=== PATIENT | male | born 1965 | race Caucasian/White ===

== ENCOUNTER → 2020-09-29 12:12 | Outpatient (BNVA) | payer MEDICARE, MEDICAID, SELFPAY | PROVIDERS: PCP Internal Medicine; Referring Provider Internal Medicine; Visit Provider Internal Medicine | DX: Z13.89 Encounter for screening for other disorder (principal) | CPT/HCPCS: Q3014 ==

== ENCOUNTER 2020-12-02 14:32 | Outpatient (REF) | payer MEDICARE, MEDICAID, SELFPAY ==
[2020-12-02 16:38] LABS: Estimated Average Glucose 200 mg/dL; Hemoglobin A1c % 8.6 %
[2020-12-02 17:03] LABS: Alanine Aminotransferase 43 U/L (0-40); Albumin Level 4.3 g/dL (3.5-5.0); Alkaline Phosphatase 59 U/L (39-117); Anion Gap 14 (12-20); Aspartate Amino Transferase 19 U/L (5-37); Bilirubin Total 1.4 mg/dL (0.0-1.0); Blood Urea Nitrogen 22 mg/dL (9-16); Calcium 9.8 mg/dL (8.4-10.2); Carbon Dioxide 30 mmol/L (22-29); Chloride 98 mmol/L (96-108); Cholesterol 106 mg/dL; Estimated Glomerular Filt Rate > 60; Glucose Random 212 mg/dL (60-115); HDL Cholesterol 32 mg/dL; LDL Cholesterol Calculated 61 mg/dl; Potassium 4.6 mmol/L (3.3-5.1); Sodium 137 mmol/L (135-145); Total Protein 6.7 g/dL (6.5-8.0); Triglycerides 67 mg/dL
[2020-12-03 07:07] LABS: LDL Cholesterol Direct 59 mg/dL (<100)
== END 2020-12-02 14:33 | disposition home or self-care (01) ==
LOC: HO.HMGCLDS 14:32
PROVIDERS: PCP Internal Medicine; Visit Provider Internal Medicine
DX: E11.65 Type 2 diabetes mellitus with hyperglycemia (principal); Z79.4 Long term (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 of insulin
CPT/HCPCS: 36415; 80053; 80061; 83036; 83721

== ENCOUNTER 2020-12-05 11:54 | Outpatient (REF) | payer MEDICARE, MEDICAID, SELFPAY ==
[2020-12-05 14:40] LABS: Creatinine Urine 78.49 mg/dL; Microalbum/Creatinine Ratio Ur 73.8 ug/mg cr
== END 2020-12-05 11:55 | disposition home or self-care (01) ==
LOC: HO.HMGCLNP 11:54
PROVIDERS: Visit Provider Internal Medicine
DX: E11.65 Type 2 diabetes mellitus with hyperglycemia (principal); Z79.4 Long term (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 of insulin
CPT/HCPCS: 82043

== ENCOUNTER → 2020-12-29 11:57 | Outpatient (BNVA) | payer MEDICARE, MEDICAID, SELFPAY | PROVIDERS: PCP Internal Medicine; Visit Provider Internal Medicine | CPT/HCPCS: Q3014 ==

== ENCOUNTER → 2021-02-23 12:42 | Outpatient (BNVA) | payer MEDICARE, MEDICAID, SELFPAY | PROVIDERS: PCP Internal Medicine; Visit Provider Internal Medicine | CPT/HCPCS: Q3014 ==

== ENCOUNTER 2021-02-27 10:16 | Outpatient (REF) | payer MEDICARE, MEDICAID, SELFPAY ==
[2021-02-27 14:10] LABS: Estimated Average Glucose 212 mg/dL
[2021-02-27 14:32] LABS: Alanine Aminotransferase 39 U/L (0-40); Albumin Level 3.8 g/dL (3.5-5.0); Alkaline Phosphatase 49 U/L (39-117); Anion Gap 13 (12-20); Aspartate Amino Transferase 24 U/L (5-37); Blood Urea Nitrogen 22 mg/dL (9-16); Calcium 8.7 mg/dL (8.4-10.2); Carbon Dioxide 26 mmol/L (22-29); Chloride 105 mmol/L (96-108); Cholesterol 102 mg/dL; Estimated Glomerular Filt Rate > 60; Glucose Random 205 mg/dL (60-115); HDL Cholesterol 30 mg/dL; LDL Cholesterol Calculated 57 mg/dl; Potassium 4.4 mmol/L (3.3-5.1); Sodium 140 mmol/L (135-145); Total Protein 5.8 g/dL (6.5-8.0); Triglycerides 76 mg/dL
[2021-02-27 14:47] LABS: Creatinine Urine 174.19 mg/dL; Microalbum/Creatinine Ratio Ur 121.7 ug/mg cr
[2021-02-27 14:55] LABS: Vitamin D 25-OH Total 19.3 ng/mL (>30)
[2021-02-28 12:01] LABS: LDL Cholesterol Direct 58 mg/dL (<100)
== END 2021-02-27 10:17 | disposition home or self-care (01) ==
LOC: HO.10HDL 10:16
PROVIDERS: Visit Provider Internal Medicine
DX: E11.65 Type 2 diabetes mellitus with hyperglycemia (principal); E55.9 Vitamin D deficiency, unspecified; Z79.4 Long term (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 of insulin
CPT/HCPCS: 36415; 80053; 80061; 82043; 82306; 83036; 83721

== ENCOUNTER → 2021-04-20 14:44 | Outpatient (BNVA) | payer MEDICARE, MEDICAID, SELFPAY | PROVIDERS: PCP Internal Medicine; Visit Provider Internal Medicine | DX: E11.65 Type 2 diabetes mellitus with hyperglycemia (principal); E78.5 Hyperlipidemia, unspecified; I10 Essential (primary) hypertension; Z79.4 Long term (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 of insulin | CPT/HCPCS: 82947; 99212 ==

== ENCOUNTER 2021-08-25 15:10 | Outpatient (REF) | payer MEDICARE, MEDICAID, SELFPAY ==
[2021-08-25 17:09] LABS: Estimated Average Glucose 197 mg/dL; Hemoglobin A1c % 8.5 %
[2021-08-25 17:27] LABS: Creatinine Urine 157.97 mg/dL
[2021-08-25 17:29] LABS: Creatinine Urine 160.84 mg/dL
[2021-08-25 17:30] LABS: Alanine Aminotransferase 30 U/L (0-40); Alanine Aminotransferase 31 U/L (0-40); Albumin Level 4.2 g/dL (3.5-5.0); Alkaline Phosphatase 60 U/L (39-117); Anion Gap 12 (12-20); Aspartate Amino Transferase 18 U/L (5-37); Aspartate Amino Transferase 19 U/L (5-37); Bilirubin Total 1.2 mg/dL (0.0-1.0); Blood Urea Nitrogen 17 mg/dL (9-16); Calcium 10.1 mg/dL (8.4-10.2); Calcium 9.6 mg/dL (8.4-10.2); Carbon Dioxide 28 mmol/L (22-29); Carbon Dioxide 29 mmol/L (22-29); Chloride 100 mmol/L (96-108); Chloride 99 mmol/L (96-108); Estimated Glomerular Filt Rate > 60; Glucose Random 192 mg/dL (60-115); Glucose Random 193 mg/dL (60-115); Potassium 4.5 mmol/L (3.3-5.1); Sodium 135 mmol/L (135-145); Total Protein 6.7 g/dL (6.5-8.0)
[2021-08-26 11:06] LABS: LDL Cholesterol Direct 87 mg/dL (<100)
== END 2021-08-25 15:11 | disposition home or self-care (01) ==
LOC: HO.HMGCLDS 15:10
PROVIDERS: Internal Medicine; PCP Internal Medicine; Visit Provider Internal Medicine
DX: E66.01 Morbid (severe) obesity due to excess calories (principal); E78.9 Disorder of lipoprotein metabolism, unspecified; I10 Essential (primary) hypertension; R80.9 Proteinuria, unspecified; E11.65 Type 2 diabetes mellitus with hyperglycemia; Z79.4 Long term (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 of insulin
CPT/HCPCS: 36415; 80053; 82043; 83036; 83721

== ENCOUNTER 2021-12-26 14:46 | Outpatient (REF) | payer MEDICARE, MEDICAID, SELFPAY ==
[2021-12-26 16:45] LABS: MANUAL DIFF FLAG NO
[2021-12-26 16:49] LABS: Basophils Absolute Auto 0.1 X10*3/uL (0.0-0.2); Basophils Percent Auto 0.6 % (0-2); Eosinophils Absolute Auto 0.1 X10*3/uL (0.0-0.4); Hematocrit 54.1 % (42.0-52.0); Hemoglobin 18.4 g/dl (14.0-18.0); Imm Gran Abs Auto 0.03 X10*3/uL (0.00-0.03); Imm Gran Pct Auto 0.3 % (0.0-0.4); Lymphocytes Absolute Auto 2.4 X10*3/uL (1.2-4.9); Lymphocytes Percent Auto 24.4 % (20-40); Mean Corpuscular Hemoglobin 30.3 pg (27.0-33.0); Mean Corpuscular Volume 89.1 fL (80.0-98.0); Mean Platelet Volume 10.6 fL (9.4-12.4); Monocytes Absolute Auto 0.6 X10*3/uL (0.1-1.2); Monocytes Percent Auto 6.4 % (2-11); Neutrophils Absolute Auto 6.7 x10*3/uL (2.0-8.3); Neutrophils Percent Auto 67.3 % (45-73); Platelet Count 330 X10*3/uL (160-400); Red Blood Count 6.07 X10*6/uL (4.60-5.80); Red Cell Distribution Width 12.7 % (11.0-16.0); White Blood Count 9.9 X10*3/uL (4.8-10.8)
[2021-12-26 17:05] LABS: Alanine Aminotransferase 27 U/L (0-40); Albumin Level 4.1 g/dL (3.5-5.0); Alkaline Phosphatase 57 U/L (39-117); Anion Gap 13 (12-20); Aspartate Amino Transferase 15 U/L (5-37); Bilirubin Total 0.9 mg/dL (0.0-1.0); Blood Urea Nitrogen 24 mg/dL (9-16); Calcium 10.4 mg/dL (8.4-10.2); Carbon Dioxide 30 mmol/L (22-29); Chloride 99 mmol/L (96-108); Estimated Glomerular Filt Rate > 60; Glucose Random 205 mg/dL (60-115); Potassium 4.8 mmol/L (3.3-5.1); Sodium 137 mmol/L (135-145); Total Protein 6.5 g/dL (6.5-8.0)
[2021-12-26 18:14] LABS: Creatinine Urine 166.09 mg/dL; Microalbum/Creatinine Ratio Ur 62.6 ug/mg cr
[2021-12-27 03:56] LABS: Estimated Average Glucose 200 mg/dL; Hemoglobin A1c % 8.6 %
[2021-12-27 07:41] LABS: LDL Cholesterol Direct 68 mg/dL (<100)
== END 2021-12-26 14:47 | disposition home or self-care (01) ==
LOC: HO.HMGCLDS 14:46
PROVIDERS: PCP Internal Medicine; Visit Provider Internal Medicine
DX: E11.65 Type 2 diabetes mellitus with hyperglycemia (principal); I10 Essential (primary) hypertension; E78.9 Disorder of lipoprotein metabolism, unspecified; E66.01 Morbid (severe) obesity due to excess calories; R80.9 Proteinuria, unspecified
CPT/HCPCS: 36415; 80053; 82043; 83036; 83721; 85025

== ENCOUNTER → 2021-12-28 12:44 | Outpatient (BNVA) | payer MEDICARE, MEDICAID, SELFPAY | PROVIDERS: PCP Internal Medicine; Visit Provider Nurse Practitioner Gerontology | DX: E11.65 Type 2 diabetes mellitus with hyperglycemia (principal); E78.5 Hyperlipidemia, unspecified; E66.01 Morbid (severe) obesity due to excess calories; I10 Essential (primary) hypertension; Z79.4 Long term (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 of insulin; Z68.41 Body mass index [BMI] 40.0-44.9, adult | CPT/HCPCS: 82947; 99212 ==

== ENCOUNTER 2022-03-07 10:53 | Emergency (ER) | payer MEDICARE, MEDICAID, SELFPAY | END 2022-03-07 12:28 | disposition left against medical advice (07) | PROVIDERS: Emergency Provider Emergency Medicine; PCP Internal Medicine | DX: L50.0 Allergic urticaria (principal) ==

== ENCOUNTER 2022-03-16 10:46 | Outpatient (REF) | payer MEDICARE, MEDICAID, SELFPAY ==
[2022-03-16 14:07] LABS: Cholesterol 90 mg/dL; HDL Cholesterol 31 mg/dL; LDL Cholesterol Calculated 50 mg/dl; Triglycerides 46 mg/dL
[2022-03-16 14:20] LABS: Creatinine Urine 109.38 mg/dL; Microalbum/Creatinine Ratio Ur 35.6 ug/mg cr
[2022-03-17 06:11] LABS: LDL Cholesterol Direct 47 mg/dL (<100)
== END 2022-03-16 10:47 | disposition home or self-care (01) ==
LOC: HO.HMGCLDS 10:46
PROVIDERS: PCP Internal Medicine; Visit Provider Nurse Practitioner Gerontology
DX: E11.42 Type 2 diabetes mellitus with diabetic polyneuropathy (principal); E11.65 Type 2 diabetes mellitus with hyperglycemia; Z79.4 Long term (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 of insulin
CPT/HCPCS: 36415; 80061; 82043; 83721

== ENCOUNTER 2022-05-02 14:22 | Outpatient (REF) | payer MEDICARE, MEDICAID, SELFPAY ==
[2022-05-02 16:38] LABS: Alanine Aminotransferase 26 U/L (0-40); Albumin Level 4.3 g/dL (3.5-5.0); Alkaline Phosphatase 55 U/L (39-117); Anion Gap 12 (12-20); Aspartate Amino Transferase 17 U/L (5-37); Blood Urea Nitrogen 23 mg/dL (9-16); Calcium 9.7 mg/dL (8.4-10.2); Carbon Dioxide 29 mmol/L (22-29); Chloride 101 mmol/L (96-108); Estimated Glomerular Filt Rate > 60; Glucose Random 155 mg/dL (60-115); Potassium 4.4 mmol/L (3.3-5.1); Sodium 138 mmol/L (135-145); Total Protein 6.6 g/dL (6.5-8.0)
[2022-05-02 16:44] LABS: Estimated Average Glucose 160 mg/dL; Hemoglobin A1c % 7.2 %
== END 2022-05-02 14:23 | disposition home or self-care (01) ==
LOC: HO.HMGCLDS 14:22
PROVIDERS: PCP Internal Medicine; Visit Provider Internal Medicine
DX: E11.65 Type 2 diabetes mellitus with hyperglycemia (principal); I10 Essential (primary) hypertension; E78.9 Disorder of lipoprotein metabolism, unspecified; E66.01 Morbid (severe) obesity due to excess calories; R80.9 Proteinuria, unspecified
CPT/HCPCS: 36415; 80053; 83036

== ENCOUNTER 2022-05-03 12:13 | Outpatient (REF) | payer MEDICARE, MEDICAID, SELFPAY ==
[2022-05-03 15:00] LABS: Creatinine Urine 253.18 mg/dL; Microalbum/Creatinine Ratio Ur 67.5 ug/mg cr
== END 2022-05-03 12:14 | disposition home or self-care (01) ==
LOC: HO.HMGCLNP 12:13
PROVIDERS: Visit Provider Internal Medicine
DX: R80.9 Proteinuria, unspecified (principal)
CPT/HCPCS: 82043

== ENCOUNTER 2022-09-05 14:59 | Outpatient (REF) | payer MEDICARE, MEDICAID, SELFPAY ==
[2022-09-05 16:54] LABS: Estimated Average Glucose 169 mg/dL; Hemoglobin A1c % 7.5 %
[2022-09-05 16:55] LABS: Alanine Aminotransferase 31 U/L (0-40); Albumin Level 4.2 g/dL (3.5-5.0); Alkaline Phosphatase 55 U/L (39-117); Anion Gap 13 (12-20); Aspartate Amino Transferase 18 U/L (5-37); Bilirubin Total 0.9 mg/dL (0.0-1.0); Blood Urea Nitrogen 15 mg/dL (9-16); Calcium 9.9 mg/dL (8.4-10.2); Carbon Dioxide 30 mmol/L (22-29); Chloride 100 mmol/L (96-108); Estimated Glomerular Filt Rate > 60; Glucose Random 160 mg/dL (60-115); Potassium 4.5 mmol/L (3.3-5.1); Sodium 138 mmol/L (135-145); Total Protein 6.5 g/dL (6.5-8.0)
== END 2022-09-05 15:00 | disposition home or self-care (01) ==
LOC: HO.HMGCLDS 14:59
PROVIDERS: PCP Internal Medicine; Visit Provider Internal Medicine
DX: E55.9 Vitamin D deficiency, unspecified (principal); E66.01 Morbid (severe) obesity due to excess calories; E78.5 Hyperlipidemia, unspecified; E78.9 Disorder of lipoprotein metabolism, unspecified; I10 Essential (primary) hypertension; E11.65 Type 2 diabetes mellitus with hyperglycemia
CPT/HCPCS: 36415; 80053; 83036

== ENCOUNTER 2023-01-04 14:48 | Outpatient (REF) | payer MEDICARE, MEDICAID, SELFPAY ==
[2023-01-04 16:49] LABS: MANUAL DIFF FLAG NO
[2023-01-04 16:52] LABS: Basophils Absolute Auto 0.1 X10*3/uL (0.0-0.2); Basophils Percent Auto 0.6 % (0-2); Eosinophils Absolute Auto 0.1 X10*3/uL (0.0-0.4); Eosinophils Percent Auto 1.2 % (0-4); Hematocrit 50.6 % (42.0-52.0); Hemoglobin 17.8 g/dl (14.0-18.0); Imm Gran Abs Auto 0.02 X10*3/uL (0.00-0.03); Imm Gran Pct Auto 0.2 % (0.0-0.4); Lymphocytes Absolute Auto 2.2 X10*3/uL (1.2-4.9); Lymphocytes Percent Auto 23.9 % (20-40); Mean Corpuscular HGB Conc 35.2 g/dl (31.0-36.0); Mean Platelet Volume 10.4 fL (9.4-12.4); Monocytes Absolute Auto 0.6 X10*3/uL (0.1-1.2); Monocytes Percent Auto 6.6 % (2-11); Neutrophils Absolute Auto 6.2 x10*3/uL (2.0-8.3); Neutrophils Percent Auto 67.5 % (45-73); Platelet Count 301 X10*3/uL (160-400); Red Blood Count 5.75 X10*6/uL (4.60-5.80); Red Cell Distribution Width 12.9 % (11.0-16.0); White Blood Count 9.3 X10*3/uL (4.8-10.8)
[2023-01-04 17:29] LABS: Estimated Average Glucose 180 mg/dL; Hemoglobin A1c % 7.9 %
[2023-01-04 18:31] LABS: Alanine Aminotransferase 22 U/L (0-40); Albumin Level 3.9 g/dL (3.5-5.0); Alkaline Phosphatase 46 U/L (39-117); Anion Gap 14 (12-20); Aspartate Amino Transferase 14 U/L (5-37); Bilirubin Total 0.9 mg/dL (0.0-1.0); Blood Urea Nitrogen 22 mg/dL (9-16); Calcium 9.6 mg/dL (8.4-10.2); Carbon Dioxide 25 mmol/L (22-29); Chloride 104 mmol/L (96-108); Estimated Glomerular Filt Rate > 60; Glucose Random 176 mg/dL (60-115); Potassium 4.3 mmol/L (3.3-5.1); Sodium 139 mmol/L (135-145); Total Protein 5.9 g/dL (6.5-8.0)
[2023-01-04 18:48] LABS: TSH reflex Free T4 1.54 uIU/mL (0.32-4.0)
[2023-01-06 06:53] LABS: LDL Cholesterol Direct 98 mg/dL (<100)
== END 2023-01-04 14:49 | disposition home or self-care (01) ==
LOC: HO.HMGCLDS 14:48
PROVIDERS: PCP Internal Medicine; Visit Provider Internal Medicine
DX: Z00.01 Encounter for general adult medical examination with abnormal findings (principal); E11.9 Type 2 diabetes mellitus without complications; E66.01 Morbid (severe) obesity due to excess calories; E78.9 Disorder of lipoprotein metabolism, unspecified; I10 Essential (primary) hypertension; R80.9 Proteinuria, unspecified; E78.5 Hyperlipidemia, unspecified
CPT/HCPCS: 36415; 80053; 83036; 83721; 84443; 85025

== ENCOUNTER 2023-01-09 07:58 | Outpatient (REF) | payer MEDICARE, MEDICAID, SELFPAY ==
[2023-01-09 12:20] LABS: Creatinine Urine 105.56 mg/dL
== END 2023-01-09 07:59 | disposition home or self-care (01) ==
LOC: HO.HMGCLDS 07:58
PROVIDERS: PCP Internal Medicine; Visit Provider Internal Medicine
DX: R80.9 Proteinuria, unspecified (principal)
CPT/HCPCS: 82043

== ENCOUNTER 2023-04-05 13:12 | Outpatient (REF) | payer MEDICARE, MEDICAID, SELFPAY ==
[2023-04-05 15:14] LABS: Alanine Aminotransferase 15 U/L (0-40); Albumin Level 3.9 g/dL (3.5-5.0); Alkaline Phosphatase 56 U/L (39-117); Anion Gap 10 (12-20); Aspartate Amino Transferase 13 U/L (5-37); Blood Urea Nitrogen 18 mg/dL (9-16); Calcium 9.6 mg/dL (8.4-10.2); Carbon Dioxide 29 mmol/L (22-29); Chloride 103 mmol/L (96-108); Estimated Glomerular Filt Rate > 60; Glucose Random 168 mg/dL (60-115); Potassium 3.9 mmol/L (3.3-5.1); Sodium 138 mmol/L (135-145); Total Protein 6.6 g/dL (6.5-8.0)
[2023-04-05 17:38] LABS: Estimated Average Glucose 163 mg/dL; Hemoglobin A1c % 7.3 %
== END 2023-04-05 13:13 | disposition home or self-care (01) ==
LOC: HO.HMGCLDS 13:12
PROVIDERS: PCP Internal Medicine; Visit Provider Internal Medicine
DX: E11.9 Type 2 diabetes mellitus without complications (principal); E66.01 Morbid (severe) obesity due to excess calories; I10 Essential (primary) hypertension; R80.9 Proteinuria, unspecified; E78.9 Disorder of lipoprotein metabolism, unspecified
CPT/HCPCS: 36415; 80053; 83036

== ENCOUNTER 2023-06-24 09:06 | Outpatient (REF) | payer MEDICARE, MEDICAID, SELFPAY ==
[2023-06-24 12:08] LABS: Estimated Average Glucose 171 mg/dL; Hemoglobin A1c % 7.6 % (<6.0)
[2023-06-24 12:20] LABS: Alanine Aminotransferase 20 U/L (0-40); Albumin Level 3.7 g/dL (3.5-5.0); Alkaline Phosphatase 62 U/L (39-117); Anion Gap 12 (12-20); Aspartate Amino Transferase 16 U/L (5-37); Bilirubin Total 1.1 mg/dL (0.0-1.0); Blood Urea Nitrogen 16 mg/dL (9-16); Calcium 9.8 mg/dL (8.4-10.2); Carbon Dioxide 30 mmol/L (22-29); Chloride 102 mmol/L (96-108); Estimated Glomerular Filt Rate > 60; Glucose Random 191 mg/dL (60-115); Potassium 3.7 mmol/L (3.3-5.1); Sodium 140 mmol/L (135-145); Total Protein 6.2 g/dL (6.5-8.0)
== END 2023-06-24 09:07 | disposition home or self-care (01) ==
LOC: HO.HMGCLDS 09:06
PROVIDERS: PCP Internal Medicine; Visit Provider Internal Medicine
DX: E11.9 Type 2 diabetes mellitus without complications (principal); I10 Essential (primary) hypertension; E66.01 Morbid (severe) obesity due to excess calories; R80.9 Proteinuria, unspecified; E78.9 Disorder of lipoprotein metabolism, unspecified
CPT/HCPCS: 36415; 80053; 83036

== ENCOUNTER 2023-07-05 12:12 | Outpatient (AMB) | payer MEDICARE, MEDICAID, SELFPAY ==
[2023-07-05 12:26] VITALS: BP 144/82; PULSE 78; O2SAT 93; BMI 42.2
--- NOTE | 2023-07-05 12:26 | A.OFFPC_ITS ---
Vital Signs 07/05/23 12:26 Height 5 ft 6 in Weight 261 lb 8 oz BMI 42.2 BP 144/82 H Blood Pressure Location Rt brachial Position Sitting Pulse 78 Pulse Source Pulse Oximeter Pulse Oximetry (%) 93 Oxygen Delivery Method Room Air Intake Visit Reasons: 3 Month follow up Allergies No Known Allergies [No Known Allergies*] Allergy (Verified 07/05/23 12:26) Medication List - Last Reconciled 07/05/23 by Dutch Hardy MD atorvastatin 80 mg PO BEDTIME 90 days blood sugar diagnostic (Prodigy No Coding strips) As directed three times a day blood sugar diagnostic (Prodigy No Coding strips) As directed 4x/day blood-glucose meter (KlickEx Autocode Meter kit) As directed three times a day blood-glucose meter (KlickEx Autocode Blood Glucose Monitoring System) As directed cetirizine (Zyrtec) 10 mg PO DAILY 90 days clotrimazole-betamethasone 1-0.05 % 1 appl topical ONCE 30 days dulaglutide (Trulicity) 0.75 mg (0.5 mL) subcut QWEEK ezetimibe 10 mg PO DAILY 90 days hydrochlorothiazide 25 mg PO QAM 90 days lancets (ProdGenabilityy Twist Top Lancet) As directed three times a day lancets (Prodigy Lancets) As directed 4x/day lisinopril 10 mg PO DAILY 90 days metformin ER 1,000 mg (2 x 500 mg) PO BID 30 days Prodigy No Coding (blood sugar diagnostic) 4x daily NS Prodigy Pocket Meter (blood-glucose meter) 3 times a day NS Tobacco use date assessed: 07/05/23 Dental Screening Dental Screen Date: 07/05/23 Did you have a dental visit in the last 12 months?: No Did you have a dental problem in the last 6 months where you did not have access to dental care?: No Was dental information given to patient?: Patient declined HPI 3 Month follow up HPI Details Patient is a 57-year-old male came in today for his regular follow-up appointment Diabetes mellitus: Patient is doing well his hemoglobin A1c came back at 7.6%, labs were done this month reviewed with the patient He is currently taking Trulicity 0.7 mg along with metformin 1 g b.i.d. Lipid disorder: Continue atorvastatin 80 mg daily. And Zetia Hypertension: patient is on hydrochlorothiazide 25 mg and lisinopril 10 mg. No side effects, however is blood pressure is not well controlled I am increasing lisinopril 20 mg BMI continued to be in morbid obesity range patient has difficulty losing weight but is trying Contact dermatitis stable with Lotrisone cream as needed Allergies are stable patient is on Zyrtec daily Follow-up early October labs to be done before visit [facility] Medical History Obesity due to excess calories Vitamin D deficiency HLD (hyperlipidemia) HTN (hypertension) T2DM (type 2 diabetes mellitus) Diabetes type 2, uncontrolled Surgical History Hx of tooth extraction Hx of colonoscopy History of ankle surgery Family History Father No problems noted. Mother No problems noted. Social History Housing: Other Alcohol intake: former Patient Tobacco Use Status: Former Tobacco user (18 years ago ) e-Cigarette/Vaping Use: Never Used Current occupational status: disabled Cognitive needs: No Hearing needs: No Vision needs: Yes Questionnaire PHQ-9 Over the last 2 weeks, how often have you been bothered by any of the following problems? 1. Little interest or pleasure in doing things: nearly every day 2. Feeling down, depressed, or hopeless: nearly every day 3. Trouble falling or staying asleep, or sleeping too much: nearly every day 4. Feeling tired or having little energy: nearly every day 5. Poor appetite or overeating: more than half the days 6. Feeling bad about yourself - or that you are a failure or have let yourself or your family down: nearly every day 7. Trouble concentrating on things, such as reading the newspaper or watching television: nearly every day 8. Moving or speaking so slowly that other people could have noticed. Or the opposite - being so fidgety or restless that you have been moving around a lot more than usual: nearly every day 9. Thoughts that you would be better off or of hurting yourself in some way: not at all Total score: 23 Depression Screening Interpretation: Positive 29244 - PHQ-9 Billing: Yes Source: Developed by Drs. Slade Raphael, Romel Reddy and colleagues, with an educational ranjan from [employer]. Thrive Questionnaire Date Thrive assessed: 07/05/23 I am a: Patient What is your living situation today?: I have a steady place to live Within the past 12 months, did the food you bought not last and you didn't have the money to get more?: Often true Within the past 12 months, did you worry whether your food would run out before you got money to buy more?: Sometimes True Do you have trouble paying for medicines?: No Do you have trouble getting transportation to medical appointments?: No Do you have trouble paying your heating and electricity bill?: No Do you have trouble taking care of your child, family member or friend?: No Do you have trouble with day-to-day activities such as bathing, preparing meals, shopping, managing finances, etc.?: No Are you currently unemployed and looking for a job?: No Are you interested in more education?: No AUDIT C Alcohol Use Questionnaire (AUDIT-C) 1. How often do you have a drink containing alcohol?: Monthly or less 2. How many drinks containing alcohol do you have on a typical day when you are drinking?: 1 or 2 3. How often do you have six or more drinks on one occasion?: Never Total Score: 1 Score Reviewed/Action Taken: Yes ISIDRA-7 AMB Questionnaire ISIDRA-7 Date ISIRDA - 7 assessed: 07/05/23 Feeling nervous, anxious, or on edge: 3 = Nearly every day Not being able to stop or control worryin = Nearly every day Worrying too much about different things: 3 = Nearly every day Trouble relaxin = More than half the days Being so restless that it is hard to sit still: 3 = Nearly every day Becoming easily annoyed or irritable: 3 = Nearly every day Feeling afraid as if something awful might happen: 2 = More than half the days Total ISIDRA-7 score (0-4 normal; 5-9 mild; 10-14 moderate; 15-21 severe): 19 Source: Developed by Tete Omalley Kurt Kroenke and colleagues, with an educational ranjan from [employer]. ISIDRA-7 Assessment Billing ISIDRA-7 Assessment Tool: ISIDRA-7 Assessment 43370 Review of Systems Const Denies chills and Denies fever(s) ENT Denies epistaxis and Denies nasal discharge Card Denies chest pain Resp Denies chest congestion, Denies cough and Denies hemoptysis GI Denies diarrhea and Denies nausea Skin/Breast Denies rash Neuro Reports no additional complaints Psych Reports no additional complaints Endo Reports no additional complaints Physical exam (Primary Care) Vital Signs: Last Vital Signs Pulse 78 07/05/23 12:26 BP 144/82 H 07/05/23 12:26 Pulse Ox 93 07/05/23 12:26 Oxygen Delivery Method Room Air 07/05/23 12:26 BMI result Body Mass Index 42.2 Tobacco/Smoking Status: Tobacco use Status Tobacco use date assessed 07/05/23 07/05/23 12:28 Patient Tobacco Use Status Former Tobacco user (18 07/05/23 12:28 years ago ) e-Cigarette/Vaping Use Never Used 07/05/23 12:28 PHQ-9: PHQ-9 Score PHQ-9: Total score 07/05/23 13:17 Depression Screening Interpretation: Positive Thrive Assessment: Date of Thrive Assessment Date Thrive assessed 07/05/23 07/05/23 13:17 Const General: cooperative, comfortable and no acute distress Orientation/consciousness: patient oriented x3 HENMT Head: Yes normocephalic Eyes General: appearance normal, both eyes and all related structures Neck Neck: Yes supple Resp Effort & Inspection: normal respiratory effort, no cough and no stridor Cardio Rhythm: regular rhythm Heart sounds: S1 normal heart sound present and S2 normal heart sound present Skin General skin exam: turgor normal Neuro General: patient oriented x3, tone normal and moves all extremities Extrem Right lower extremity: no edema Left lower extremity: no edema Assessment and Plan Assessment & Plan (1) T2DM (type 2 diabetes mellitus): Code(s): E11.9 - Type 2 diabetes mellitus without complications Qualifiers: Diabetes mellitus complication status: with hyperglycemia Diabetes mellitus penitentiary insulin use: with penitentiary use Qualified Code(s): E11.65 - Type 2 diabetes mellitus with hyperglycemia; 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 (2) HTN (hypertension): Code(s): I10 - Essential (primary) hypertension Qualifiers: Hypertension type: unspecified Qualified Code(s): I10 - Essential (primary) hypertension (3) Morbid obesity due to excess calories: Code(s): E66.01 - Morbid (severe) obesity due to excess calories (4) Lipid disorder: Code(s): E78.9 - Disorder of lipoprotein metabolism, unspecified (5) Osteoarthritis of left hip: Code(s): M16.12 - Unilateral primary osteoarthritis, left hip Qualifiers: Osteoarthritis type: primary Qualified Code(s): M16.12 - Unilateral primary osteoarthritis, left hip (6) Contact dermatitis: Code(s): L25.9 - Unspecified contact dermatitis, unspecified cause Qualifiers: Contact dermatitis trigger: unspecified trigger Contact dermatitis type: allergic Qualified Code(s): L23.9 - Allergic contact dermatitis, unspecified cause (7) Microalbuminuria: Code(s): R80.9 - Proteinuria, unspecified Plan Patient is a 57-year-old male came in today for his regular follow-up appointment Diabetes mellitus: Patient is doing well his hemoglobin A1c came back at 7.6%, labs were done this month reviewed with the patient He is currently taking Trulicity 0.7 mg along with metformin 1 g b.i.d. Lipid disorder: Continue atorvastatin 80 mg daily. And Zetia Hypertension: patient is on hydrochlorothiazide 25 mg and lisinopril 10 mg. No side effects, however is blood pressure is not well controlled I am increasing lisinopril 20 mg BMI continued to be in morbid obesity range patient has difficulty losing weight but is trying Contact dermatitis stable with Lotrisone cream as needed Allergies are stable patient is on Zyrtec daily Patient has osteoarthritis keeps, knees, uses cane for ambulation Follow-up early October labs to be done before visit Orders: Orders Hemoglobin A1c Today E11.9 - Type 2 diabetes mellitus without complications, E66.01 - Morbid (severe) obesity due to excess calories, E78.9 - Disorder of lipoprotein metabolism, unspecified, I10 - Essential (primary) hypertension, L25.9 - Unspecified contact dermatitis, unspecified cause, M16.12 - Unilateral primary osteoarthritis, left hip Complete Blood Count Auto Diff Today E11.9 - Type 2 diabetes mellitus without complications, E66.01 - Morbid (severe) obesity due to excess calories, E78.9 - Disorder of lipoprotein metabolism, unspecified, I10 - Essential (primary) hypertension, L25.9 - Unspecified contact dermatitis, unspecified cause, M16.12 - Unilateral primary osteoarthritis, left hip Comprehensive Met. Panel Today E11.9 - Type 2 diabetes mellitus without complications, E66.01 - Morbid (severe) obesity due to excess calories, E78.9 - Disorder of lipoprotein metabolism, unspecified, I10 - Essential (primary) hypertension, L25.9 - Unspecified contact dermatitis, unspecified cause, M16.12 - Unilateral primary osteoarthritis, left hip LDL Cholesterol Direct Today E11.9 - Type 2 diabetes mellitus without complications, E66.01 - Morbid (severe) obesity due to excess calories, E78.9 - Disorder of lipoprotein metabolism, unspecified, I10 - Essential (primary) hypertension, L25.9 - Unspecified contact dermatitis, unspecified cause, M16.12 - Unilateral primary osteoarthritis, left hip Microalbumin, Random (w Creat) Today E11.9 - Type 2 diabetes mellitus without complications, E66.01 - Morbid (severe) obesity due to excess calories, E78.9 - Disorder of lipoprotein metabolism, unspecified, I10 - Essential (primary) hypertension, L25.9 - Unspecified contact dermatitis, unspecified cause, M16.12 - Unilateral primary osteoarthritis, left hip Medications: Changed From lisinopril 10 mg PO DAILY 90 days 90 tabs 1RF I10 - Essential (primary) hypertension To lisinopril 20 mg PO DAILY 90 tabs 1RF 90 days I10 - Essential (primary) hypertension Refilled clotrimazole-betamethasone 1-0.05 % 1 appl topical ONCE 45 grams 0RF 30 days ezetimibe 10 mg PO DAILY 90 tabs 1RF 90 days E78.9 - Disorder of lipoprotein metabolism, unspecified metformin ER 1,000 mg (2 x 500 mg) PO BID 120 tabs 11RF 30 days E11.65 - Type 2 diabetes mellitus with hyperglycemia, 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 atorvastatin 80 mg PO BEDTIME 90 tabs 1RF 90 days E78.9 - Disorder of lipoprotein metabolism, unspecified cetirizine (Zyrtec) 10 mg PO DAILY 90 tabs 1RF 90 days dulaglutide (Trulicity) 0.75 mg (0.5 mL) subcut QWEEK 2 mL 4RF E11.65 - Type 2 diabetes mellitus with hyperglycemia hydrochlorothiazide 25 mg PO QAM 90 tabs 1RF 90 days I10 - Essential (primary) hypertension Coding Level of Care Code Est Pt Level 4 (28344) Diagnoses Type 2 diabetes mellitus with hyperglycemia, with long-term current use of insulin E11.65; Z79.4 Diabetes mellitus complication status: with hyperglycemia Diabetes mellitus environmental services director insulin use: with penitentiary use Hypertension, unspecified type I10 Hypertension type: unspecified Morbid obesity due to excess calories E66.01 Lipid disorder E78.9 Primary osteoarthritis of left hip M16.12 Osteoarthritis type: primary Allergic contact dermatitis, unspecified trigger L23.9 Contact dermatitis trigger: unspecified trigger Contact dermatitis type: allergic Microalbuminuria R80.9 Additional Codes ISIDRA-7 Assessment Billing - ISIDRA-7 Assessment Tool: ISIDRA-7 Assessment 35014 ([id number])
== END 2023-07-05 16:01 | disposition home or self-care (01) ==
PROVIDERS: PCP Internal Medicine; Visit Provider Internal Medicine
DX: E11.65 Type 2 diabetes mellitus with hyperglycemia (principal); Z79.4 Long term (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 of insulin; E66.01 Morbid (severe) obesity due to excess calories; Z68.41 Body mass index [BMI] 40.0-44.9, adult; I10 Essential (primary) hypertension; E78.9 Disorder of lipoprotein metabolism, unspecified; M16.12 Unilateral primary osteoarthritis, left hip; L23.9 Allergic contact dermatitis, unspecified cause; R80.9 Proteinuria, unspecified
CPT/HCPCS: 99214

== ENCOUNTER 2023-10-11 12:10 | Outpatient (REF) | payer MEDICARE, MEDICAID, SELFPAY ==
[2023-10-11 13:29] LABS: MANUAL DIFF FLAG NO
[2023-10-11 13:47] LABS: Basophils Absolute Auto 0.1 X10*3/uL (0.0-0.2); Basophils Percent Auto 0.5 % (0-2); Eosinophils Absolute Auto 0.2 X10*3/uL (0.0-0.4); Eosinophils Percent Auto 2.4 % (0-4); Imm Gran Abs Auto 0.04 X10*3/uL (0.00-0.03); Imm Gran Pct Auto 0.4 % (0.0-0.4); Lymphocytes Absolute Auto 2.5 X10*3/uL (1.2-4.9); Mean Corpuscular HGB Conc 34.7 g/dl (31.0-36.0); Mean Corpuscular Volume 89.4 fL (80.0-98.0); Mean Platelet Volume 9.9 fL (9.4-12.4); Monocytes Absolute Auto 0.7 X10*3/uL (0.1-1.2); Monocytes Percent Auto 6.9 % (2-11); Neutrophils Absolute Auto 6.4 x10*3/uL (2.0-8.3); Neutrophils Percent Auto 64.8 % (45-73); Platelet Count 306 X10*3/uL (160-400); Red Blood Count 6.48 X10*6/uL (4.60-5.80); Red Cell Distribution Width 13.1 % (11.0-16.0); White Blood Count 9.9 X10*3/uL (4.8-10.8)
[2023-10-11 13:48] LABS: Hematocrit 57.9 % (42.0-52.0); Hemoglobin 20.1 g/dl (14.0-18.0)
[2023-10-11 13:53] LABS: Estimated Average Glucose 186 mg/dL; Hemoglobin A1c % 8.1 % (<6.0)
[2023-10-11 13:54] LABS: Alanine Aminotransferase 25 U/L (0-40); Albumin Level 4.2 g/dL (3.5-5.0); Alkaline Phosphatase 66 U/L (39-117); Anion Gap 12 (12-20); Aspartate Amino Transferase 15 U/L (5-37); Blood Urea Nitrogen 27 mg/dL (9-16); Carbon Dioxide 31 mmol/L (22-29); Chloride 99 mmol/L (96-108); Estimated Glomerular Filt Rate > 60; Glucose Random 204 mg/dL (60-115); Potassium 4.4 mmol/L (3.3-5.1); Sodium 138 mmol/L (135-145)
[2023-10-11 14:18] LABS: Creatinine Urine 171.48 mg/dL
[2023-10-11 15:03] LABS: Microalbum/Creatinine Ratio Ur 616.3 ug/mg cr (<30)
[2023-10-12 07:23] LABS: LDL Cholesterol Direct 126 mg/dL (<100)
== END 2023-10-11 12:11 | disposition home or self-care (01) ==
LOC: HO.HMGCLDS 12:10
PROVIDERS: PCP Internal Medicine; Visit Provider Internal Medicine
DX: E11.9 Type 2 diabetes mellitus without complications (principal); I10 Essential (primary) hypertension; E66.01 Morbid (severe) obesity due to excess calories; E78.9 Disorder of lipoprotein metabolism, unspecified; M16.12 Unilateral primary osteoarthritis, left hip; L25.9 Unspecified contact dermatitis, unspecified cause
CPT/HCPCS: 36415; 80053; 82043; 82570; 83036; 83721; 85025

== ENCOUNTER 2023-10-18 12:10 | Outpatient (AMB) | payer MEDICARE, MEDICAID, SELFPAY ==
[2023-10-18 12:13] VITALS: BP 124/70; PULSE 87; O2SAT 94; BMI 41.9
--- NOTE | 2023-10-18 12:13 | MHC.PC.OV ---
Vital Signs 10/18/23 12:13 Height 5 ft 6 in Weight 259 lb 8 oz BMI 41.9 BP 124/70 Blood Pressure Location Lt brachial Position Sitting Pulse 87 Pulse Source Pulse Oximeter Pulse Oximetry (%) 94 Oxygen Delivery Method Room Air Intake Visit Reasons: follow up Allergies No Known Allergies [No Known Allergies*] Allergy (Verified 10/18/23 12:16) Medication List - Last Reconciled 10/18/23 by Dutch Hardy MD atorvastatin 80 mg PO BEDTIME 90 days blood sugar diagnostic (Prodigy No Coding strips) As directed three times a day blood sugar diagnostic (Prodigy No Coding strips) As directed 4x/day blood-glucose meter ([employer] Autocode Meter kit) As directed three times a day blood-glucose meter ([employer] Autocode Blood Glucose Monitoring System) As directed clotrimazole-betamethasone 1-0.05 % 1 appl topical ONCE 30 days dulaglutide (Trulicity) 0.75 mg (0.5 mL) subcut QWEEK ezetimibe 10 mg PO DAILY 90 days hydrochlorothiazide 25 mg PO QAM 90 days lancets (Prodigy Twist Top Lancet) As directed three times a day lancets (Prodigy Lancets) As directed 4x/day lisinopril 20 mg PO DAILY 90 days metformin ER 1,000 mg (2 x 500 mg) PO BID 30 days Prodigy No Coding (blood sugar diagnostic) 4x daily NS Prodigy Pocket Meter (blood-glucose meter) 3 times a day NS Tobacco use date assessed: 10/18/23 Dental Screening Dental Screen Date: 10/18/23 Did you have a dental visit in the last 12 months?: No Did you have a dental problem in the last 6 months where you did not have access to dental care?: No Was dental information given to patient?: No HPI follow up HPI Details Patient is a 58-year-old male came in today for his regular follow-up appointment Diabetes mellitus: Patient is doing well his hemoglobin A1c came back at 8.1%, patient says that it is because of holidays, he also have a microalbuminuria and is due for repeat check He is currently taking Trulicity 0.7 mg along with metformin 1 g b.i.d. Lipid disorder: Continue atorvastatin 80 mg daily. And Zetia Hypertension: patient is on hydrochlorothiazide 25 mg and lisinopril 20 mg, blood pressure is well controlled now, he is tolerating medication no side effects BMI continued to be in morbid obesity range patient has difficulty losing weight but is trying Contact dermatitis stable with Lotrisone cream as needed Allergies are stable patient is on Zyrtec daily Patient has osteoarthritis keeps, knees, uses cane for ambulation off and on He is requesting a referral to urology for erectile dysfunction Follow-up in December [facility] Medical History Obesity due to excess calories Vitamin D deficiency HLD (hyperlipidemia) HTN (hypertension) T2DM (type 2 diabetes mellitus) Diabetes type 2, uncontrolled Surgical History Hx of tooth extraction Hx of colonoscopy History of ankle surgery Family History Father No problems noted. Mother No problems noted. Social History Housing: Other Alcohol intake: former Patient Tobacco Use Status: Former Tobacco user (18 years ago ) e-Cigarette/Vaping Use: Never Used Current occupational status: disabled Cognitive needs: No Hearing needs: No Vision needs: Yes Questionnaire Thrive Questionnaire Date Thrive assessed: 07/05/23 AUDIT C Alcohol Use Questionnaire (AUDIT-C) 1. How often do you have a drink containing alcohol?: Monthly or less 2. How many drinks containing alcohol do you have on a typical day when you are drinking?: 1 or 2 3. How often do you have six or more drinks on one occasion?: Never Total Score: 1 Score Reviewed/Action Taken: Yes ISIDRA-7 AMB Questionnaire ISIDRA-7 Date ISIDRA - 7 assessed: 07/05/23 Source: Developed by Drs. Slade Raphael, Tete Nelson, Romel Duarte and colleagues, with an educational ranjan from [employer]. Review of Systems Const Denies chills and Denies fever(s) ENT Denies epistaxis and Denies nasal discharge Card Denies chest pain Resp Denies chest congestion, Denies cough and Denies hemoptysis GI Denies diarrhea and Denies nausea Skin/Breast Denies rash Neuro Reports no additional complaints Psych Reports no additional complaints Endo Reports no additional complaints Physical exam (Primary Care) Vital Signs: Last Vital Signs Pulse 87 10/18/23 12:13 BP 124/70 10/18/23 12:13 Pulse Ox 94 10/18/23 12:13 Oxygen Delivery Method Room Air 10/18/23 12:13 BMI result Body Mass Index 41.9 Tobacco/Smoking Status: Tobacco use Status Tobacco use date assessed 10/18/23 10/18/23 12:16 Patient Tobacco Use Status Former Tobacco user (18 10/18/23 12:16 years ago ) e-Cigarette/Vaping Use Never Used 10/18/23 12:16 Thrive Assessment: Date of Thrive Assessment Date Thrive assessed 07/05/23 10/18/23 12:16 Const General: cooperative, comfortable and no acute distress Orientation/consciousness: patient oriented x3 HENMT Head: Yes normocephalic Eyes General: appearance normal, both eyes and all related structures Neck Neck: Yes supple Resp Effort & Inspection: normal respiratory effort, no cough and no stridor Cardio Rhythm: regular rhythm Heart sounds: S1 normal heart sound present and S2 normal heart sound present Skin General skin exam: turgor normal Neuro General: patient oriented x3, tone normal and moves all extremities Extrem Right lower extremity: no edema Left lower extremity: no edema Assessment and Plan Assessment & Plan (1) Diabetes mellitus type 2 in obese: Code(s): E11.69 - Type 2 diabetes mellitus with other specified complication; E66.9 - Obesity, unspecified (2) Erectile dysfunction: Code(s): N52.9 - Male erectile dysfunction, unspecified Qualifiers: Erectile dysfunction type: due to other cause Qualified Code(s): N52.8 - Other male erectile dysfunction (3) HTN (hypertension): Code(s): I10 - Essential (primary) hypertension Qualifiers: Hypertension type: unspecified Qualified Code(s): I10 - Essential (primary) hypertension (4) Microalbuminuria: Code(s): R80.9 - Proteinuria, unspecified (5) Morbid obesity due to excess calories: Code(s): E66.01 - Morbid (severe) obesity due to excess calories (6) Lipid disorder: Code(s): E78.9 - Disorder of lipoprotein metabolism, unspecified (7) Obesity due to excess calories: Code(s): E66.09 - Other obesity due to excess calories Qualifiers: Body mass index: BMI 40.0-44.9 Obesity classification: adult class 3 (BMI >= 40) Serious obesity comorbidity presence: with serious comorbidity Qualified Code(s): E66.01 - Morbid (severe) obesity due to excess calories; Z68.41 - Body mass index [BMI] 40.0-44.9, adult (8) Osteoarthritis of left hip: Code(s): M16.12 - Unilateral primary osteoarthritis, left hip Qualifiers: Osteoarthritis type: primary Qualified Code(s): M16.12 - Unilateral primary osteoarthritis, left hip (9) Contact dermatitis: Code(s): L25.9 - Unspecified contact dermatitis, unspecified cause Qualifiers: Contact dermatitis trigger: unspecified trigger Contact dermatitis type: allergic Qualified Code(s): L23.9 - Allergic contact dermatitis, unspecified cause Plan Patient is a 58-year-old male came in today for his regular follow-up appointment Diabetes mellitus: Patient is doing well his hemoglobin A1c came back at 8.1%, patient says that it is because of holidays, he also have a microalbuminuria and is due for repeat check He is currently taking Trulicity 0.7 mg along with metformin 1 g b.i.d. Lipid disorder: Continue atorvastatin 80 mg daily. And Zetia Hypertension: patient is on hydrochlorothiazide 25 mg and lisinopril 20 mg, blood pressure is well controlled now, he is tolerating medication no side effects BMI continued to be in morbid obesity range patient has difficulty losing weight but is trying Contact dermatitis stable with Lotrisone cream as needed Allergies are stable patient is on Zyrtec daily Patient has osteoarthritis keeps, knees, uses cane for ambulation off and on He is requesting a referral to urology for erectile dysfunction Follow-up in December Orders: Orders Complete Blood Count Auto Diff Today E11.69 - Type 2 diabetes mellitus with other specified complication, E66.01 - Morbid (severe) obesity due to excess calories, E66.09 - Other obesity due to excess calories, E66.9 - Obesity, unspecified, E78.9 - Disorder of lipoprotein metabolism, unspecified, I10 - Essential (primary) hypertension, L25.9 - Unspecified contact dermatitis, unspecified cause, M16.12 - Unilateral primary osteoarthritis, left hip, N52.9 - Male erectile dysfunction, unspecified, R80.9 - Proteinuria, unspecified Comprehensive Met. Panel Today E11.69 - Type 2 diabetes mellitus with other specified complication, E66.01 - Morbid (severe) obesity due to excess calories, E66.09 - Other obesity due to excess calories, E66.9 - Obesity, unspecified, E78.9 - Disorder of lipoprotein metabolism, unspecified, I10 - Essential (primary) hypertension, L25.9 - Unspecified contact dermatitis, unspecified cause, M16.12 - Unilateral primary osteoarthritis, left hip, N52.9 - Male erectile dysfunction, unspecified, R80.9 - Proteinuria, unspecified LDL Cholesterol Direct Today E11.69 - Type 2 diabetes mellitus with other specified complication, E66.01 - Morbid (severe) obesity due to excess calories, E66.09 - Other obesity due to excess calories, E66.9 - Obesity, unspecified, E78.9 - Disorder of lipoprotein metabolism, unspecified, I10 - Essential (primary) hypertension, L25.9 - Unspecified contact dermatitis, unspecified cause, M16.12 - Unilateral primary osteoarthritis, left hip, N52.9 - Male erectile dysfunction, unspecified, R80.9 - Proteinuria, unspecified Microalbumin, Random (w Creat) Today E11.69 - Type 2 diabetes mellitus with other specified complication, E66.01 - Morbid (severe) obesity due to excess calories, E66.09 - Other obesity due to excess calories, E66.9 - Obesity, unspecified, E78.9 - Disorder of lipoprotein metabolism, unspecified, I10 - Essential (primary) hypertension, L25.9 - Unspecified contact dermatitis, unspecified cause, M16.12 - Unilateral primary osteoarthritis, left hip, N52.9 - Male erectile dysfunction, unspecified, R80.9 - Proteinuria, unspecified Hemoglobin A1c Today E11.69 - Type 2 diabetes mellitus with other specified complication, E66.01 - Morbid (severe) obesity due to excess calories, E66.09 - Other obesity due to excess calories, E66.9 - Obesity, unspecified, E78.9 - Disorder of lipoprotein metabolism, unspecified, I10 - Essential (primary) hypertension, L25.9 - Unspecified contact dermatitis, unspecified cause, M16.12 - Unilateral primary osteoarthritis, left hip, N52.9 - Male erectile dysfunction, unspecified, R80.9 - Proteinuria, unspecified Referrals Urology Referral N52.9 - Male erectile dysfunction, unspecified Medications: Refilled dulaglutide (Trulicity) 0.75 mg (0.5 mL) subcut QWEEK 2 mL 4RF E11.65 - Type 2 diabetes mellitus with hyperglycemia Coding Level of Care Code Est Pt Level 4 (87483) Diagnoses Diabetes mellitus type 2 in obese E11.69; E66.9 Other male erectile dysfunction N52.8 Erectile dysfunction type: due to other cause Hypertension, unspecified type I10 Hypertension type: unspecified Microalbuminuria R80.9 Morbid obesity due to excess calories E66.01 Lipid disorder E78.9 Class 3 severe obesity due to excess calories with serious comorbidity and body mass index (BMI) of 40.0 to 44.9 in adult E66.01; Z68.41 Body mass index: BMI 40.0-44.9 Obesity classification: adult class 3 (BMI >= 40) Serious obesity comorbidity presence: with serious comorbidity Primary osteoarthritis of left hip M16.12 Osteoarthritis type: primary Allergic contact dermatitis, unspecified trigger L23.9 Contact dermatitis trigger: unspecified trigger Contact dermatitis type: allergic
== END 2023-10-18 12:54 | disposition home or self-care (01) ==
PROVIDERS: PCP Internal Medicine; Visit Provider Internal Medicine
DX: E11.69 Type 2 diabetes mellitus with other specified complication (principal); E66.01 Morbid (severe) obesity due to excess calories; Z68.41 Body mass index [BMI] 40.0-44.9, adult; E66.9 Obesity, unspecified; I10 Essential (primary) hypertension; N52.8 Other male erectile dysfunction; R80.9 Proteinuria, unspecified; E78.9 Disorder of lipoprotein metabolism, unspecified; M16.12 Unilateral primary osteoarthritis, left hip; L23.9 Allergic contact dermatitis, unspecified cause
CPT/HCPCS: 99214

== ENCOUNTER 2023-12-19 10:12 | Outpatient (REF) | payer MEDICARE, MEDICAID, SELFPAY ==
[2023-12-19 13:07] LABS: MANUAL DIFF FLAG NO
[2023-12-19 13:20] LABS: Basophils Absolute Auto 0.1 X10*3/uL (0.0-0.2); Basophils Percent Auto 0.8 % (0-2); Eosinophils Absolute Auto 0.2 X10*3/uL (0.0-0.4); Eosinophils Percent Auto 2.6 % (0-4); Hematocrit 54.2 % (42.0-52.0); Imm Gran Abs Auto 0.03 X10*3/uL (0.00-0.03); Imm Gran Pct Auto 0.4 % (0.0-0.4); Lymphocytes Percent Auto 23.6 % (20-40); Mean Corpuscular HGB Conc 35.1 g/dl (31.0-36.0); Mean Corpuscular Hemoglobin 30.8 pg (27.0-33.0); Mean Platelet Volume 10.4 fL (9.4-12.4); Monocytes Absolute Auto 0.5 X10*3/uL (0.1-1.2); Monocytes Percent Auto 6.4 % (2-11); Neutrophils Absolute Auto 5.5 x10*3/uL (2.0-8.3); Neutrophils Percent Auto 66.2 % (45-73); Platelet Count 298 X10*3/uL (160-400); Red Blood Count 6.16 X10*6/uL (4.60-5.80); Red Cell Distribution Width 13.2 % (11.0-16.0); White Blood Count 8.3 X10*3/uL (4.8-10.8)
[2023-12-19 13:29] LABS: Estimated Average Glucose 177 mg/dL; Hemoglobin A1c % 7.8 % (<6.0)
[2023-12-19 14:04] LABS: Alanine Aminotransferase 17 U/L (0-40); Albumin Level 3.8 g/dL (3.5-5.0); Alkaline Phosphatase 55 U/L (39-117); Anion Gap 13 (12-20); Aspartate Amino Transferase 14 U/L (5-37); Bilirubin Total 0.8 mg/dL (0.0-1.0); Blood Urea Nitrogen 19 mg/dL (9-16); Calcium 9.1 mg/dL (8.4-10.2); Carbon Dioxide 29 mmol/L (22-29); Chloride 102 mmol/L (96-108); Estimated Glomerular Filt Rate > 60; Glucose Random 173 mg/dL (60-115); Potassium 3.8 mmol/L (3.3-5.1); Sodium 140 mmol/L (135-145); Total Protein 6.3 g/dL (6.5-8.0)
[2023-12-19 14:17] LABS: Creatinine Urine 164.44 mg/dL; Microalbum/Creatinine Ratio Ur 1216.2 ug/mg cr (<30); Microalbumin Urine > 2000.0 mg/L
[2023-12-20 23:04] LABS: LDL Cholesterol Direct 183 mg/dL (<100)
== END 2023-12-19 10:13 | disposition home or self-care (01) ==
LOC: HO.HMGCLDS 10:12
PROVIDERS: PCP Internal Medicine; Visit Provider Internal Medicine
DX: E66.01 Morbid (severe) obesity due to excess calories (principal); E11.69 Type 2 diabetes mellitus with other specified complication; E78.9 Disorder of lipoprotein metabolism, unspecified; I10 Essential (primary) hypertension; R80.9 Proteinuria, unspecified; M16.12 Unilateral primary osteoarthritis, left hip; L25.9 Unspecified contact dermatitis, unspecified cause; N52.9 Male erectile dysfunction, unspecified
CPT/HCPCS: 36415; 80053; 82043; 82570; 83036; 83721; 85025

== ENCOUNTER 2024-01-10 13:46 | Outpatient (AMB) | payer MEDICARE, MEDICAID, SELFPAY ==
[2024-01-10 13:48] VITALS: BP 168/92; PULSE 89; O2SAT 98; BMI 43.2
--- NOTE | 2024-01-10 13:48 | A.OFFPC_ITS ---
Vital Signs 01/10/24 13:48 01/10/24 14:15 Height 5 ft 6 in Weight 267 lb 8 oz BMI 43.2 BP 168/92 H 158/90 H Blood Pressure Location Rt brachial Lt brachial Position Sitting Sitting Pulse 89 Pulse Source Pulse Oximeter Pulse Oximetry (%) 98 Oxygen Delivery Method Room Air Intake Visit Reasons: Annual PE Allergies No Known Allergies [No Known Allergies*] Allergy (Verified 01/10/24 13:48) Medication List - Last Reconciled 01/10/24 by Dutch Hardy MD atorvastatin 80 mg PO BEDTIME 90 days blood sugar diagnostic (Prodigy No Coding strips) As directed three times a day blood sugar diagnostic (Prodigy No Coding strips) As directed 4x/day blood-glucose meter ([employer] Autocode Meter kit) As directed three times a day blood-glucose meter ([employer] Aut[employer] Blood Glucose Monitoring System) As d irected clotrimazole-betamethasone 1-0.05 % 1 appl topical ONCE 30 days dulaglutide (Trulicity) 0.75 mg (0.5 mL) subcut QWEEK ezetimibe 10 mg PO DAILY 90 days hydrochlorothiazide 25 mg PO QAM 90 days lancets ([facility] Twist Top Lancet) As directed three times a day lancets (Prodigy Lancets) As directed 4x/day lisinopril 20 mg PO DAILY 90 days metformin ER 1,000 mg (2 x 500 mg) PO BID 30 days Prodigy No Coding (blood sugar diagnostic) 4x daily NS Prodigy Pocket Meter (blood-glucose meter) 3 times a day NS Tobacco use date assessed: 01/10/24 Dental Screening Dental Screen Date: 01/10/24 Did you have a dental visit in the last 12 months?: No Did you have a dental problem in the last 6 months where you did not have access to dental care?: No Was dental information given to patient?: No HPI Annual PE HPI Details Physical exam Declined colonoscopy Labs done recently reviewed Blood pressure is 168/92, patient says that is upset about something We rechecked after 15 minutes and it was, it has improved but still elevated at 158 systolic Patient instructed to start monitoring his blood pressure at home and give me a call in a week Medication list reviewed Patient is morbidly obese need to lose weight A1c came back at 7.8 patient is on insulin patient is on metformin 1000 units b.i.d. and Trulicity 0.75 mg once awake I am increasing the dose to 1.5 mg LDL is still very high patient was not taking his atorvastatin 80 mg regularly is taking it regularly now [facility] Medical History Obesity due to excess calories Vitamin D deficiency HLD (hyperlipidemia) HTN (hypertension) T2DM (type 2 diabetes mellitus) Diabetes type 2, uncontrolled Surgical History Hx of tooth extraction Hx of colonoscopy History of ankle surgery Family History Father No problems noted. Mother No problems noted. Social History Housing: Other Alcohol intake: former Patient Tobacco Use Status: Former Tobacco user (18 years ago ) e-Cigarette/Vaping Use: Never Used service: No Current occupational status: disabled Cognitive needs: No Hearing needs: No Vision needs: Yes Questionnaire Thrive Questionnaire Date Thrive assessed: 07/05/23 AUDIT C Alcohol Use Questionnaire (AUDIT-C) 1. How often do you have a drink containing alcohol?: Monthly or less 2. How many drinks containing alcohol do you have on a typical day when you are drinking?: 1 or 2 3. How often do you have six or more drinks on one occasion?: Never Total Score: 1 Score Reviewed/Action Taken: Yes ISIDRA-7 AMB Questionnaire ISIDRA-7 Date ISIDRA - 7 assessed: 07/05/23 Source: Developed by Drs. Slade Raphael, Tete Nelson, Romel Duarte and colleagues, with an educational ranjan from [employer]. Review of Systems Const Denies chills, Denies fever(s) and Denies headache(s) Eyes Denies blurry vision ENT Denies headache(s), Denies nasal discharge, Denies nasal obstruction, Denies odynophagia and Denies sinus pain Card Denies chest pain at rest and Denies chest pain with activity Resp Denies cough and Denies hemoptysis GI Denies diarrhea, Denies odynophagia, Denies vomiting and Denies hematemesis Reports as per HPI Skin/Breast Reports as per HPI Neuro Denies Neuro-related abnormal movements, Denies Abnormal speech present and Denies headache(s) Psych Denies mood swings and Denies paranoia Endo Reports as per HPI Ezequiel/Lymph Reports as per HPI Aller/Immun Reports as per HPI Physical exam (Primary Care) Vital Signs: Last Vital Signs Pulse 89 01/10/24 13:48 BP 158/90 H 01/10/24 14:15 Pulse Ox 98 01/10/24 13:48 Oxygen Delivery Method Room Air 01/10/24 13:48 BMI result Body Mass Index 43.2 Tobacco/Smoking Status: Tobacco use Status Tobacco use date assessed 01/10/24 01/10/24 13:50 Patient Tobacco Use Status Former Tobacco user (18 01/10/24 13:50 years ago ) e-Cigarette/Vaping Use Never Used 01/10/24 13:50 Thrive Assessment: Date of Thrive Assessment Date Thrive assessed 07/05/23 01/10/24 13:50 Const General: cooperative, comfortable and no acute distress Orientation/consciousness: patient oriented x3 HENMT Head: Yes normocephalic and Yes atraumatic Eyes General: appearance normal, both eyes and all related structures Pupils: Equal, round and reactive pupils present EOM: EOMs intact bilaterally Neck Neck: Yes supple and No lymphadenopathy Thyroid: Thyroid normal Lymphatic: no lymphadenopathy noted Resp Effort & Inspection: normal respiratory effort and able to speak in complete sentences Auscultation: clear to auscultation bilaterally Cardio Heart sounds: S1 normal heart sound present and S2 normal heart sound present GI Palpation (GI): Soft to palpation and nontender Auscultation: normal bowel sounds General: Yes no CVA tenderness Back/Spine/Pelvis Back: no CVA tenderness Skin General skin exam: elasticity normal and turgor normal Neuro General: patient oriented x3 Cranial nerves: Yes Equal, round and reactive pupils present Speech: No Abnormal speech present Coordination: Romberg test negative Extrem General: Yes normal exam except as noted and No edema Assessment and Plan Assessment & Plan (1) Encounter for general adult medical examination with abnormal findings: Code(s): Z00.01 - Encounter for general adult medical examination with abnormal findings (2) T2DM (type 2 diabetes mellitus): Code(s): E11.9 - Type 2 diabetes mellitus without complications Qualifiers: Diabetes mellitus complication status: with hyperglycemia Diabetes mellitus assisted insulin use: with buttermaker continuous churn use Qualified Code(s): E11.65 - Type 2 diabetes mellitus with hyperglycemia; Z79.4 - care home (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 of insulin (3) HTN (hypertension): Code(s): I10 - Essential (primary) hypertension Qualifiers: Hypertension type: unspecified Qualified Code(s): I10 - Essential (primary) hypertension (4) Lipid disorder: Code(s): E78.9 - Disorder of lipoprotein metabolism, unspecified (5) Morbid obesity due to excess calories: Code(s): E66.01 - Morbid (severe) obesity due to excess calories (6) Vitamin D deficiency: Code(s): E55.9 - Vitamin D deficiency, unspecified (7) Microalbuminuria: Code(s): R80.9 - Proteinuria, unspecified (8) Erectile dysfunction: Code(s): N52.9 - Male erectile dysfunction, unspecified Qualifiers: Erectile dysfunction type: due to other cause Qualified Code(s): N52.8 - Other male erectile dysfunction (9) Osteoarthritis of left hip: Code(s): M16.12 - Unilateral primary osteoarthritis, left hip Qualifiers: Osteoarthritis type: primary Qualified Code(s): M16.12 - Unilateral primary osteoarthritis, left hip (10) Abnormal tandem walk: Code(s): R26.9 - Unspecified abnormalities of gait and mobility Plan Physical exam Declined colonoscopy Labs done recently reviewed Blood pressure is 168/92, patient says that is upset about something We rechecked after 15 minutes and it was, it has improved but still elevated at 158 systolic Patient instructed to start monitoring his blood pressure at home and give me a call in a week Medication list reviewed Patient is morbidly obese need to lose weight A1c came back at 7.8 patient is on insulin patient is on metformin 1000 units b.i.d. and Trulicity 0.75 mg once awake I am increasing the dose to 1.5 mg LDL is still very high patient was not taking his atorvastatin 80 mg regularly is taking it regularly now Patient is not able to perform tandem walk because of severe osteoarthritis in his knees hips Orders: Orders Hemoglobin A1c Today E11.9 - Type 2 diabetes mellitus without complications, E55.9 - Vitamin D deficiency, unspecified, E66.01 - Morbid (severe) obesity due to excess calories, E78.9 - Disorder of lipoprotein metabolism, unspecified, I10 - Essential (primary) hypertension, R80.9 - Proteinuria, unspecified, Z00.01 - Encounter for general adult medical examination with abnormal findings Complete Blood Count Auto Diff Today E11.9 - Type 2 diabetes mellitus without complications, E55.9 - Vitamin D deficiency, unspecified, E66.01 - Morbid (severe) obesity due to excess calories, E78.9 - Disorder of lipoprotein metabolism, unspecified, I10 - Essential (primary) hypertension, R80.9 - Proteinuria, unspecified, Z00.01 - Encounter for general adult medical examination with abnormal findings Comprehensive [place]. Panel Fast Today E11.9 - Type 2 diabetes mellitus without complications, E55.9 - Vitamin D deficiency, unspecified, E66.01 - Morbid (severe) obesity due to excess calories, E78.9 - Disorder of lipoprotein metabolism, unspecified, I10 - Essential (primary) hypertension, R80.9 - Proteinuria, unspecified, Z00.01 - Encounter for general adult medical examination with abnormal findings Lipid Panel Today E11.9 - Type 2 diabetes mellitus without complications, E55.9 - Vitamin D deficiency, unspecified, E66.01 - Morbid (severe) obesity due to excess calories, E78.9 - Disorder of lipoprotein metabolism, unspecified, I10 - Essential (primary) hypertension, R80.9 - Proteinuria, unspecified, Z00.01 - Encounter for general adult medical examination with abnormal findings Microalbumin, Random (w Creat) Today E11.9 - Type 2 diabetes mellitus without complications, E55.9 - Vitamin D deficiency, unspecified, E66.01 - Morbid (severe) obesity due to excess calories, E78.9 - Disorder of lipoprotein metabolism, unspecified, I10 - Essential (primary) hypertension, R80.9 - Proteinuria, unspecified, Z00.01 - Encounter for general adult medical examination with abnormal findings Medications: Changed From dulaglutide (Trulicity) 0.75 mg (0.5 mL) subcut QWEEK 2 mL 4RF E11.65 - Type 2 diabetes mellitus with hyperglycemia To dulaglutide (Trulicity) 1.5 mg subcut QWEEK 13 mL 1RF 90 days E11.65 - Type 2 diabetes mellitus with hyperglycemia Coding Level of Care Code Est Pt [facility] Care [id number]([id number]) Diagnoses Encounter for general adult medical examination with abnormal findings Z00.01 Type 2 diabetes mellitus with hyperglycemia, with long-term current use of insulin E11.65; Z79.4 Diabetes mellitus complication status: with hyperglycemia Diabetes mellitus assisted insulin use: with assisted use Hypertension, unspecified type I10 Hypertension type: unspecified Lipid disorder E78.9 Morbid obesity due to excess calories E66.01 Vitamin D deficiency E55.9 Microalbuminuria R80.9 Other male erectile dysfunction N52.8 Erectile dysfunction type: due to other cause Primary osteoarthritis of left hip M16.12 Osteoarthritis type: primary Abnormal tandem walk R26.9
[2024-01-10 14:15] VITALS: BP 158/90
== END 2024-01-10 14:17 | disposition home or self-care (01) ==
PROVIDERS: Visit Provider Internal Medicine
DX: Z00.01 Encounter for general adult medical examination with abnormal findings (principal); E11.65 Type 2 diabetes mellitus with hyperglycemia; E66.01 Morbid (severe) obesity due to excess calories; Z79.4 Long term (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 of insulin; Z68.41 Body mass index [BMI] 40.0-44.9, adult; I10 Essential (primary) hypertension; E78.9 Disorder of lipoprotein metabolism, unspecified; E55.9 Vitamin D deficiency, unspecified; R80.9 Proteinuria, unspecified; N52.8 Other male erectile dysfunction; M16.12 Unilateral primary osteoarthritis, left hip; R26.9 Unspecified abnormalities of gait and mobility
CPT/HCPCS: 99396

== ENCOUNTER 2024-04-03 12:59 | Outpatient (REF) | payer MEDICARE, MEDICAID, SELFPAY ==
[2024-04-03 16:32] LABS: MANUAL DIFF FLAG NO
[2024-04-03 16:45] LABS: Basophils Absolute Auto 0.1 X10*3/uL (0.0-0.2); Basophils Percent Auto 1.2 % (0-2); Eosinophils Absolute Auto 0.2 X10*3/uL (0.0-0.4); Eosinophils Percent Auto 2.3 % (0-4); Hemoglobin 17.7 g/dl (14.0-18.0); Imm Gran Abs Auto 0.03 X10*3/uL (0.00-0.03); Imm Gran Pct Auto 0.4 % (0.0-0.4); Lymphocytes Absolute Auto 2.3 X10*3/uL (1.2-4.9); Lymphocytes Percent Auto 27.6 % (20-40); Mean Corpuscular HGB Conc 34.7 g/dl (31.0-36.0); Mean Corpuscular Hemoglobin 31.3 pg (27.0-33.0); Mean Corpuscular Volume 90.1 fL (80.0-98.0); Monocytes Absolute Auto 0.5 X10*3/uL (0.1-1.2); Monocytes Percent Auto 6.4 % (2-11); Neutrophils Absolute Auto 5.1 x10*3/uL (2.0-8.3); Neutrophils Percent Auto 62.1 % (45-73); Platelet Count 285 X10*3/uL (160-400); Red Blood Count 5.66 X10*6/uL (4.60-5.80); Red Cell Distribution Width 13.2 % (11.0-16.0); White Blood Count 8.1 X10*3/uL (4.8-10.8)
[2024-04-03 16:47] LABS: Alanine Aminotransferase 25 U/L (0-40); Alkaline Phosphatase 51 U/L (39-117); Anion Gap 12 (12-20); Aspartate Amino Transferase 20 U/L (5-37); Bilirubin Total 1.1 mg/dL (0.0-1.0); Blood Urea Nitrogen 15 mg/dL (9-16); Calcium 9.4 mg/dL (8.4-10.2); Carbon Dioxide 28 mmol/L (22-29); Chloride 105 mmol/L (96-108); Cholesterol 166 mg/dL (<200); Estimated Glomerular Filt Rate > 60; Glucose Fasting 137 mg/dL (60-99); HDL Cholesterol 41 mg/dL (>40); LDL Cholesterol Calculated 100 mg/dL (<100); Potassium 3.9 mmol/L (3.3-5.1); Sodium 141 mmol/L (135-145); Total Protein 6.3 g/dL (6.5-8.0); Triglycerides 127 mg/dL (<150)
[2024-04-03 16:55] LABS: Estimated Average Glucose 177 mg/dL; Hemoglobin A1c % 7.8 % (<6.0)
== END 2024-04-03 13:00 | disposition home or self-care (01) ==
LOC: HO.HMGCLDS 12:59
PROVIDERS: PCP Internal Medicine; Visit Provider Internal Medicine
DX: Z00.01 Encounter for general adult medical examination with abnormal findings (principal); E11.9 Type 2 diabetes mellitus without complications; I10 Essential (primary) hypertension; E78.9 Disorder of lipoprotein metabolism, unspecified; E66.01 Morbid (severe) obesity due to excess calories; E55.9 Vitamin D deficiency, unspecified; R80.9 Proteinuria, unspecified
CPT/HCPCS: 36415; 80053; 80061; 83036; 85025

== ENCOUNTER 2024-04-07 13:57 | Outpatient (REF) | payer MEDICARE, MEDICAID, SELFPAY ==
[2024-04-07 17:37] LABS: Creatinine Urine 224.56 mg/dL; Microalbum/Creatinine Ratio Ur 718.7 ug/mg cr (<30)
== END 2024-04-07 13:58 | disposition home or self-care (01) ==
LOC: HO.HMGCLNP 13:57
PROVIDERS: PCP Internal Medicine; Visit Provider Internal Medicine
DX: Z00.01 Encounter for general adult medical examination with abnormal findings (principal); E11.9 Type 2 diabetes mellitus without complications; I10 Essential (primary) hypertension; E78.9 Disorder of lipoprotein metabolism, unspecified; E66.01 Morbid (severe) obesity due to excess calories; E55.9 Vitamin D deficiency, unspecified; R80.9 Proteinuria, unspecified
CPT/HCPCS: 82043; 82570

== ENCOUNTER 2024-04-07 14:00 | Outpatient (AMB) | payer MEDICARE, MEDICAID, SELFPAY ==
[2024-04-07 14:02] VITALS: BP 142/78; PULSE 83; O2SAT 95; BMI 41.4
--- NOTE | 2024-04-07 14:02 | A.OFFPC_ITS ---
Vital Signs 04/07/24 14:02 Height 5 ft 6 in Weight 256 lb 6 oz BMI 41.4 BP 142/78 H Blood Pressure Location Lt brachial Position Sitting Pulse 83 Pulse Source Pulse Oximeter Pulse Oximetry (%) 95 Oxygen Delivery Method Room Air Intake Visit Reasons: 3 month follow up Allergies No Known Allergies [No Known Allergies*] Allergy (Verified 04/07/24 14:03) Medication List - Last Reconciled 04/07/24 by Dutch Hardy MD atorvastatin 80 mg PO BEDTIME 90 days blood sugar diagnostic (Prodigy No Coding strips) As directed three times a day blood sugar diagnostic (Prodigy No Coding strips) As directed 4x/day blood-glucose meter ([employer] Autocode Meter kit) As directed three times a day blood-glucose meter ([employer] Autocode Blood Glucose Monitoring System) As directed clotrimazole-betamethasone 1-0.05 % 1 appl topical ONCE 30 days dulaglutide 1.5 mg (0.5 mL) subcut QWEEK 90 days ezetimibe 10 mg PO DAILY 90 days hydrochlorothiazide 25 mg PO QAM 90 days lancets ([employer] Twist Top Lancet) As directed three times a day lancets (Prodigy Lancets) As directed 4x/day lisinopril 20 mg PO DAILY metformin ER 1,000 mg (2 x 500 mg) PO BID 30 days Prodigy No Coding (blood sugar diagnostic) 4x daily NS Prodigy Pocket Meter (blood-glucose meter) 3 times a day NS Tobacco use date assessed: 04/07/24 Dental Screening Dental Screen Date: 04/07/24 Did you have a dental visit in the last 12 months?: No Did you have a dental problem in the last 6 months where you did not have access to dental care?: No Was dental information given to patient?: No HPI 3 month follow up HPI Details Patient is a 58-year-old male came in today for his regular follow-up appointment Complaining ringing in left ear off and on, on examination there is no infection Diabetes mellitus: Patient is doing well his hemoglobin A1c came back at 7.8%, he also have a microalbuminuria He is currently taking Trulicity 0.7 mg along with metformin 1 g b.i.d. Lipid disorder: Continue atorvastatin 80 mg daily. And Zetia Hypertension: patient is on hydrochlorothiazide 25 mg and lisinopril 20 mg, still elevated I am increasing his lisinopril to 30 mg BMI continued to be in morbid obesity range patient has difficulty losing weight but is trying Contact dermatitis stable with Lotrisone cream as needed Allergies are stable patient is on Zyrtec daily Patient has osteoarthritis keeps, knees, uses cane for ambulation off and on Follow-up early July HPI Comments History of Present Illness Details This is a longitudinal relationship between me and the patient. Ongoing care provided, patient was provided time to ask questions [facility] Medical History Obesity due to excess calories Vitamin D deficiency HLD (hyperlipidemia) HTN (hypertension) T2DM (type 2 diabetes mellitus) Diabetes type 2, uncontrolled Surgical History Hx of tooth extraction Hx of colonoscopy History of ankle surgery Family History Father No problems noted. Mother No problems noted. Social History Housing: Other Alcohol intake: former Patient Tobacco Use Status: Former Tobacco user (18 years ago ) e-Cigarette/Vaping Use: Never Used service: No Current occupational status: disabled Cognitive needs: No Hearing needs: No Vision needs: Yes Questionnaire PHQ-9 Over the last 2 weeks, how often have you been bothered by any of the following problems? 1. Little interest or pleasure in doing things: not at all 2. Feeling down, depressed, or hopeless: more than half the days 3. Trouble falling or staying asleep, or sleeping too much: not at all 4. Feeling tired or having little energy: not at all 5. Poor appetite or overeating: not at all 6. Feeling bad about yourself - or that you are a failure or have let yourself or your family down: not at all 7. Trouble concentrating on things, such as reading the newspaper or watching television: more than half the days 8. Moving or speaking so slowly that other people could have noticed. Or the opp osite - being so fidgety or restless that you have been moving around a lot more than usual: not at all 9. Thoughts that you would be better off or of hurting yourself in some way: more than half the days Total score: 6 Depression Screening Interpretation: Negative Depression Screening Done: Yes 22473 - PHQ-9 Billing: Yes Source: Developed by Drs. Slade Raphael, Tete Nelson, Romel Duarte and colleagues, with an educational ranjan from [employer]. Thrive Questionnaire Date Thrive assessed: 07/05/23 ISIDRA-7 AMB Questionnaire ISIDRA-7 Date ISIDRA - 7 assessed: 07/05/23 Source: Developed by Drs. Slade Raphael, Tete Nelson, Romel Duarte and colleagues, with an educational ranjan from [employer]. Review of Systems Const Denies chills and Denies fever(s) ENT Denies epistaxis and Denies nasal discharge Card Denies chest pain Resp Denies chest congestion, Denies cough and Denies hemoptysis GI Denies diarrhea and Denies nausea Skin/Breast Denies rash Neuro Reports no additional complaints Psych Reports no additional complaints Endo Reports no additional complaints Physical exam (Primary Care) Vital Signs: Last Vital Signs Pulse 83 04/07/24 14:02 BP 142/78 H 04/07/24 14:02 Pulse Ox 95 04/07/24 14:02 Oxygen Delivery Method Room Air 04/07/24 14:02 BMI result Body Mass Index 41.4 Tobacco/Smoking Status: Tobacco use Status Tobacco use date assessed 04/07/24 04/07/24 14:05 Patient Tobacco Use Status Former Tobacco user (18 04/07/24 14:05 years ago ) e-Cigarette/Vaping Use Never Used 04/07/24 14:05 Depression Screening Interpretation: Negative Thrive Assessment: Date of Thrive Assessment Date Thrive assessed 07/05/23 04/07/24 14:05 Const General: cooperative, comfortable and no acute distress Orientation/consciousness: patient oriented x3 HENMT Head: Yes normocephalic Eyes General: appearance normal, both eyes and all related structures Neck Neck: Yes supple Resp Effort & Inspection: normal respiratory effort, no cough and no stridor Cardio Rhythm: regular rhythm Heart sounds: S1 normal heart sound present and S2 normal heart sound present Skin General skin exam: turgor normal Neuro General: patient oriented x3, tone normal and moves all extremities Assessment and Plan Assessment & Plan (1) T2DM (type 2 diabetes mellitus): Code(s): E11.9 - Type 2 diabetes mellitus without complications Qualifiers: Diabetes mellitus complication status: with hyperglycemia 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 Qualified Code(s): E11.65 - Type 2 diabetes mellitus with hyperglycemia; Z79.4 - terminal superintendent (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 of 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 (2) HTN (hypertension): Code(s): I10 - Essential (primary) hypertension Qualifiers: Hypertension type: unspecified Qualified Code(s): I10 - Essential (primary) hypertension (3) Lipid disorder: Code(s): E78.9 - Disorder of lipoprotein metabolism, unspecified (4) Morbid obesity due to excess calories: Code(s): E66.01 - Morbid (severe) obesity due to excess calories (5) Vitamin D deficiency: Code(s): E55.9 - Vitamin D deficiency, unspecified (6) Microalbuminuria: Code(s): R80.9 - Proteinuria, unspecified (7) Osteoarthritis of left hip: Code(s): M16.12 - Unilateral primary osteoarthritis, left hip Qualifiers: Osteoarthritis type: primary Qualified Code(s): M16.12 - Unilateral primary osteoarthritis, left hip Plan Patient is a 58-year-old male came in today for his regular follow-up appointment Complaining ringing in left ear off and on, on examination there is no infection Diabetes mellitus: Patient is doing well his hemoglobin A1c came back at 7.8%, he also have a microalbuminuria He is currently taking Trulicity 0.7 mg along with metformin 1 g b.i.d. Lipid disorder: Continue atorvastatin 80 mg daily. And Zetia Hypertension: patient is on hydrochlorothiazide 25 mg and lisinopril 20 mg, still elevated I am increasing his lisinopril to 30 mg BMI continued to be in morbid obesity range patient has difficulty losing weight but is trying Contact dermatitis stable with Lotrisone cream as needed Allergies are stable patient is on Zyrtec daily Patient has osteoarthritis keeps, knees, uses cane for ambulation off and on Follow-up early July Orders: Orders Hemoglobin A1c 3 Months E11.65 - Type 2 diabetes mellitus with hyperglycemia, E78.9 - Disorder of lipoprotein metabolism, unspecified, I10 - Essential (prim dante) hypertension, Z79.4 - terminal superintendent (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 of insulin Complete Blood Count Auto Diff 3 Months E11.65 - Type 2 diabetes mellitus with hyperglycemia, E78.9 - Disorder of lipoprotein metabolism, unspecified, I10 - Essential (primary) hypertension, Z79.4 - correction (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 of insulin Comprehensive Met. Panel 3 Months E11.65 - Type 2 diabetes mellitus with hyperglycemia, E78.9 - Disorder of lipoprotein metabolism, unspecified, I10 - Essential (primary) hypertension, Z79.4 - correction (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 of insulin Medications: Changed From lisinopril 20 mg PO DAILY I10 - Essential (primary) hypertension To lisinopril 30 mg PO DAILY 90 tabs 0RF 90 days I10 - Essential (primary) hypertension Coding Level of Care Code Est Pt Level 4 (58355) Complex EM visit Add On G2211 Diagnoses Type 2 diabetes mellitus with hyperglycemia, with long-term current use of insulin E11.65; Z79.4 Diabetes mellitus complication status: with hyperglycemia 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
== END 2024-04-07 14:25 | disposition home or self-care (01) ==
PROVIDERS: PCP Internal Medicine; Visit Provider Internal Medicine
DX: E11.65 Type 2 diabetes mellitus with hyperglycemia (principal); Z79.4 Long term (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 of insulin; E66.01 Morbid (severe) obesity due to excess calories; Z68.41 Body mass index [BMI] 40.0-44.9, adult; I10 Essential (primary) hypertension; E78.9 Disorder of lipoprotein metabolism, unspecified; E55.9 Vitamin D deficiency, unspecified; R80.9 Proteinuria, unspecified; M16.12 Unilateral primary osteoarthritis, left hip
CPT/HCPCS: 99214; G2211

== ENCOUNTER 2024-07-15 11:34 | Outpatient (REF) | payer MEDICARE, MEDICAID, SELFPAY ==
[2024-07-15 13:43] LABS: MANUAL DIFF FLAG NO
[2024-07-15 13:59] LABS: Basophils Absolute Auto 0.1 X10*3/uL (0.0-0.2); Basophils Percent Auto 1.1 % (0-2); Eosinophils Absolute Auto 0.4 X10*3/uL (0.0-0.4); Eosinophils Percent Auto 4.3 % (0-4); Hematocrit 51.5 % (42.0-52.0); Hemoglobin 17.8 g/dl (14.0-18.0); Imm Gran Abs Auto 0.03 X10*3/uL (0.00-0.03); Imm Gran Pct Auto 0.4 % (0.0-0.4); Lymphocytes Absolute Auto 1.9 X10*3/uL (1.2-4.9); Lymphocytes Percent Auto 22.9 % (20-40); Mean Corpuscular HGB Conc 34.6 g/dl (31.0-36.0); Mean Corpuscular Hemoglobin 30.8 pg (27.0-33.0); Mean Corpuscular Volume 89.1 fL (80.0-98.0); Monocytes Absolute Auto 0.5 X10*3/uL (0.1-1.2); Neutrophils Absolute Auto 5.5 x10*3/uL (2.0-8.3); Neutrophils Percent Auto 65.3 % (45-73); Platelet Count 276 X10*3/uL (160-400); Red Blood Count 5.78 X10*6/uL (4.60-5.80); Red Cell Distribution Width 12.8 % (11.0-16.0); White Blood Count 8.5 X10*3/uL (4.8-10.8)
[2024-07-15 14:23] LABS: Alanine Aminotransferase 26 U/L (0-40); Albumin Level 3.9 g/dL (3.5-5.0); Alkaline Phosphatase 54 U/L (39-117); Anion Gap 12 (12-20); Aspartate Amino Transferase 17 U/L (5-37); Blood Urea Nitrogen 18 mg/dL (9-16); Calcium 9.1 mg/dL (8.4-10.2); Carbon Dioxide 25 mmol/L (22-29); Chloride 107 mmol/L (96-108); Estimated Glomerular Filt Rate > 60; Glucose Random 200 mg/dL (60-115); Potassium 3.9 mmol/L (3.3-5.1); Sodium 140 mmol/L (135-145); Total Protein 6.4 g/dL (6.5-8.0)
[2024-07-15 14:28] LABS: Estimated Average Glucose 183 mg/dL; Hemoglobin A1C 282.0529 umol/L; Total Hemoglobin (HGBA1C) 4390.0867 umol/L
== END 2024-07-15 11:35 | disposition home or self-care (01) ==
LOC: HO.HMGCLDS 11:34
PROVIDERS: PCP Internal Medicine; Visit Provider Internal Medicine
DX: E11.65 Type 2 diabetes mellitus with hyperglycemia (principal); Z79.4 Long term (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 of insulin; I10 Essential (primary) hypertension; E78.9 Disorder of lipoprotein metabolism, unspecified
CPT/HCPCS: 36415; 80053; 83036; 85025

== ENCOUNTER 2024-07-21 13:40 | Outpatient (AMB) | payer MEDICARE, MEDICAID, SELFPAY ==
[2024-07-21 14:03] VITALS: BP 140/92; PULSE 89; O2SAT 94; BMI 41.7
--- NOTE | 2024-07-21 14:03 | MHC.PC.OV ---
Vital Signs 07/21/24 14:03 Height 5 ft 6 in Weight 258 lb 4 oz BMI 41.7 BP 140/92 H Blood Pressure Location Lt brachial Position Sitting Pulse 89 Pulse Source Pulse Oximeter Pulse Oximetry (%) 94 Oxygen Delivery Method Room Air Intake Visit Reasons: 3 month follow up Allergies No Known Allergies [No Known Allergies*] Allergy (Verified 07/21/24 14:04) Medication List - Last Reconciled 07/21/24 by Dutch Hardy MD atorvastatin 80 mg PO BEDTIME 90 days blood sugar diagnostic (Prodigy No Coding strips) As directed 4x/day blood sugar diagnostic (Prodigy No Coding strips) As directed three times a day blood-glucose meter ([employer] Aut[employer] Meter kit) As directed three times a day blood-glucose meter ([employer] Blood Glucose Monitoring System) As directed cetirizine 10 mg PO DAILY clotrimazole-betamethasone 1-0.05 % 1 appl topical ONCE 30 days dulaglutide 1.5 mg (0.5 mL) subcut QWEEK 90 days ezetimibe 10 mg PO DAILY 90 days hydrochlorothiazide 25 mg PO QAM 90 days lancets ([employer] Twist Top Lancet) As directed three times a day lancets ([employer] Lancets) As directed 4x/day lisinopril 30 mg PO DAILY 90 days metformin ER 1,000 mg (2 x 500 mg) PO BID 30 days Prodigy No Coding (blood sugar diagnostic) 4x daily NS Prodigy Pocket Meter (blood-glucose meter) 3 times a day NS Tobacco use date assessed: 07/21/24 Dental Screening Dental Screen Date: 07/21/24 Did you have a dental visit in the last 12 months?: No Did you have a dental problem in the last 6 months where you did not have access to dental care?: No Was dental information given to patient?: No HPI 3 month follow up HPI Details Patient is a 59-year-old male came in today for his regular follow-up appointment Diabetes mellitus: Hemoglobin A1c has gone up to 8.0, he also have a microalbuminuria He is currently taking Trulicity 1.5 mg I am increasing it to 3 mg along with metformin 1 g b.i.d. Lipid disorder: Continue atorvastatin 80 mg daily. And Zetia Hypertension: patient is on hydrochlorothiazide 25 mg and lisinopril 30 mg, blood pressure is still high I have increased lisinopril further to 40 mg BMI continued to be in morbid obesity range patient has difficulty losing weight but is trying Contact dermatitis stable with Lotrisone cream as needed Allergies are stable patient is on Zyrtec daily Patient has osteoarthritis keeps, knees, uses cane for ambulation off and on Follow-up 3 months, labs are needed before visit [facility] Medical History Obesity due to excess calories Vitamin D deficiency HLD (hyperlipidemia) HTN (hypertension) T2DM (type 2 diabetes mellitus) Diabetes type 2, uncontrolled Surgical History Hx of tooth extraction Hx of colonoscopy History of ankle surgery Family History Father No problems noted. Mother No problems noted. Social History Housing: Other Alcohol intake: former Patient Tobacco Use Status: Former Tobacco user (18 years ago ) e-Cigarette/Vaping Use: Never Used service: No Current occupational status: disabled Cognitive needs: No Hearing needs: No Vision needs: Yes Questionnaire PHQ-9 Over the last 2 weeks, how often have you been bothered by any of the following problems? 1. Little interest or pleasure in doing things: more than half the days 2. Feeling down, depressed, or hopeless: not at all 3. Trouble falling or staying asleep, or sleeping too much: not at all 4. Feeling tired or having little energy: more than half the days 5. Poor appetite or overeating: not at all 6. Feeling bad about yourself - or that you are a failure or have let yourself or your family down: not at all 7. Trouble concentrating on things, such as reading the newspaper or watching television: several days 8. Moving or speaking so slowly that other people could have noticed. Or the opposite - being so fidgety or restless that you have been moving around a lot more than usual: several days 9. Thoughts that you would be better off or of hurting yourself in some way: not at all Total score: 6 Depression Screening Interpretation: Negative Depression Screening Done: Yes 51042 - PHQ-9 Billing: Yes Source: Developed by Drs. Slade Raphael, Tete Nelson, Romel Duarte and colleagues, with an educational ranjan from [employer]. Thrive Questionnaire Date Thrive assessed: 07/21/24 I am a: Patient What is your living situation today?: I have a steady place to live Within the past 12 months, did the food you bought not last and you didn't have the money to get more?: Often true Within the past 12 months, did you worry whether your food would run out before you got money to buy more?: Often true Do you have trouble paying for medicines?: Yes Do you have trouble getting transportation to medical appointments?: Yes Do you have trouble paying your heating and electricity bill?: Yes Do you have trouble taking care of your child, family member or friend?: Yes Do you have trouble with day-to-day activities such as bathing, preparing meals, shopping, managing finances, etc.?: No Are you currently unemployed and looking for a job?: No Are you interested in more education?: No Please select the resources that you would like help with: None Currently or been in a relationship where the following occur: No concerns reported THRIVE Score: 4 AUDIT C Alcohol Use Questionnaire (AUDIT-C) 1. How often do you have a drink containing alcohol?: Never 3. How often do you have six or more drinks on one occasion?: Never Total Score: 0 Score Reviewed/Action Taken: Yes ISIDRA-7 AMB Questionnaire ISIDRA-7 Date ISIDRA - 7 assessed: 07/21/24 Feeling nervous, anxious, or on edge: 0 = Not at all Not being able to stop or control worryin = Not at all Worrying too much about different things: 0 = Not at all Trouble relaxin = Not at all Being so restless that it is hard to sit still: 0 = Not at all Becoming easily annoyed or irritable: 0 = Not at all Feeling afraid as if something awful might happen: 0 = Not at all Total ISIDRA-7 score (0-4 normal; 5-9 mild; 10-14 moderate; 15-21 severe): 0 Source: Developed by Tete Omalley Kurt Kroenke and colleagues, with an educational ranjan from [employer]. ISIDRA-7 Assessment Billing ISIDRA-7 Assessment Tool: ISIDRA-7 Assessment 52523 Review of Systems Const Denies chills and Denies fever(s) ENT Denies epistaxis and Denies nasal discharge Card Denies chest pain Resp Denies chest congestion, Denies cough and Denies hemoptysis GI Denies diarrhea and Denies nausea Skin/Breast Denies rash Neuro Reports no additional complaints Psych Reports no additional complaints Endo Reports no additional complaints Physical exam (Primary Care) Vital Signs: Last Vital Signs Pulse 89 07/21/24 14:03 BP 140/92 H 07/21/24 14:03 Pulse Ox 94 07/21/24 14:03 Oxygen Delivery Method Room Air 07/21/24 14:03 BMI result Body Mass Index 41.7 Tobacco/Smoking Status: Tobacco use Status Tobacco use date assessed 07/21/24 07/21/24 14:04 Patient Tobacco Use Status Former Tobacco user (18 07/21/24 14:04 years ago ) e-Cigarette/Vaping Use Never Used 07/21/24 14:04 PHQ-9: PHQ-9 Score PHQ-9: Total score 6 07/21/24 14:21 Depression Screening Interpretation: Negative Thrive Assessment: Date of Thrive Assessment Date Thrive assessed 07/21/24 07/21/24 14:04 Currently or been in a relationship where the following occur: No concerns reported Const General: cooperative, comfortable and no acute distress Orientation/consciousness: patient oriented x3 HENMT Head: Yes normocephalic Eyes General: appearance normal, both eyes and all related structures Neck Neck: Yes supple Resp Effort & Inspection: normal respiratory effort, no cough and no stridor Cardio Rhythm: regular rhythm Heart sounds: S1 normal heart sound present and S2 normal heart sound present Skin General skin exam: turgor normal Neuro General: patient oriented x3, tone normal and moves all extremities Extrem Right lower extremity: no edema Left lower extremity: no edema Coding Level of Care Code Est Pt Level 4 (94809) Complex EM visit Add On G2211 Diagnoses Diabetes mellitus type 2 in obese E11.69; E66.9 Hypertension, unspecified type I10 Hypertension type: unspecified Morbid obesity due to excess calories E66.01 Microalbuminuria R80.9 Lipid disorder E78.9 Additional Codes ISIDRA-7 Assessment Billing - ISIDRA-7 Assessment Tool: ISIDRA-7 Assessment 36380 ([id number]) Assessment & Plan Assessment & Plan (1) Diabetes mellitus type 2 in obese: Code(s): E11.69 - Type 2 diabetes mellitus with other specified complication; E66.9 - Obesity, unspecified Category: Medical (2) HTN (hypertension): Code(s): I10 - Essential (primary) hypertension Category: Medical Qualifiers: Hypertension type: unspecified Qualified Code(s): I10 - Essential (primary) hypertension (3) Morbid obesity due to excess calories: Code(s): E66.01 - Morbid (severe) obesity due to excess calories Category: Medical (4) Microalbuminuria: Code(s): R80.9 - Proteinuria, unspecified Category: Medical (5) Lipid disorder: Code(s): E78.9 - Disorder of lipoprotein metabolism, unspecified Category: Medical Plan Patient is a 59-year-old male came in today for his regular follow-up appointment Diabetes mellitus: Hemoglobin A1c has gone up to 8.0, he also have a microalbuminuria He is currently taking Trulicity 1.5 mg I am increasing it to 3 mg along with metformin 1 g b.i.d. Lipid disorder: Continue atorvastatin 80 mg daily. And Zetia Hypertension: patient is on hydrochlorothiazide 25 mg and lisinopril 30 mg, blood pressure is still high I have increased lisinopril further to 40 mg BMI continued to be in morbid obesity range patient has difficulty losing weight but is trying Contact dermatitis stable with Lotrisone cream as needed Allergies are stable patient is on Zyrtec daily Patient has osteoarthritis keeps, knees, uses cane for ambulation off and on Follow-up 3 months, labs are needed before visit Orders: Orders Hemoglobin A1c Today E11.69 - Type 2 diabetes mellitus with other specified complication, E66.01 - Morbid (severe) obesity due to excess calories, E66.9 - Obesity, unspecified, E78.9 - Disorder of lipoprotein metabolism, unspecified, I10 - Essential (primary) hypertension, R80.9 - Proteinuria, unspecified Complete Blood Count Auto Diff Today E11.69 - Type 2 diabetes mellitus with other specified complication, E66.01 - Morbid (severe) obesity due to excess calories, E66.9 - Obesity, unspecified, E78.9 - Disorder of lipoprotein metabolism, unspecified, I10 - Essential (primary) hypertension, R80.9 - Proteinuria, unspecified Comprehensive Met. Panel Today E11.69 - Type 2 diabetes mellitus with other specified complication, E66.01 - Morbid (severe) obesity due to excess calories, E66.9 - Obesity, unspecified, E78.9 - Disorder of lipoprotein metabolism, unspecified, I10 - Essential (primary) hypertension, R80.9 - Proteinuria, unspecified Microalbumin, Random (w Creat) Today E11.69 - Type 2 diabetes mellitus with other specified complication, E66.01 - Morbid (severe) obesity due to excess calories, E66.9 - Obesity, unspecified, E78.9 - Disorder of lipoprotein metabolism, unspecified, I10 - Essential (primary) hypertension, R80.9 - Proteinuria, unspecified Medications: Changed From lisinopril 30 mg PO DAILY 90 days 90 tabs 0RF I10 - Essential (primary) hypertension To lisinopril 40 mg PO DAILY 90 days 90 tabs 0RF I10 - Essential (primary) hypertension From dulaglutide 1.5 mg (0.5 mL) subcut QWEEK 90 days 6.5 mL 1RF E11.65 - Type 2 diabetes mellitus with hyperglycemia To dulaglutide 3 mg (0.5 mL) subcut QWEEK 90 days 6.5 mL 1RF E11.65 - Type 2 diabetes mellitus with hyperglycemia
== END 2024-07-21 14:23 | disposition home or self-care (01) ==
PROVIDERS: PCP Internal Medicine; Visit Provider Internal Medicine
DX: E11.69 Type 2 diabetes mellitus with other specified complication (principal); E66.813 Obesity, class 3; Z68.41 Body mass index [BMI] 40.0-44.9, adult; I10 Essential (primary) hypertension; R80.9 Proteinuria, unspecified; E78.9 Disorder of lipoprotein metabolism, unspecified

== ENCOUNTER → 2024-07-21 13:40 | Outpatient (BNVA) | payer MEDICARE, MEDICAID, SELFPAY | PROVIDERS: PCP Internal Medicine; Visit Provider Internal Medicine | DX: E11.69 Type 2 diabetes mellitus with other specified complication (principal); I10 Essential (primary) hypertension; E66.01 Morbid (severe) obesity due to excess calories; R80.9 Proteinuria, unspecified; E78.9 Disorder of lipoprotein metabolism, unspecified | CPT/HCPCS: 96127; 99212 ==

== ENCOUNTER 2024-10-15 10:21 | Outpatient (REF) | payer MEDICARE, MEDICAID, SELFPAY ==
[2024-10-15 13:09] LABS: MANUAL DIFF FLAG NO
[2024-10-15 13:12] LABS: Basophils Absolute Auto 0.1 X10*3/uL (0.0-0.2); Basophils Percent Auto 0.8 % (0-2); Eosinophils Absolute Auto 0.4 X10*3/uL (0.0-0.4); Eosinophils Percent Auto 3.2 % (0-4); Hematocrit 53.9 % (42.0-52.0); Hemoglobin 18.4 g/dl (14.0-18.0); Imm Gran Abs Auto 0.04 X10*3/uL (0.00-0.03); Imm Gran Pct Auto 0.3 % (0.0-0.4); Lymphocytes Absolute Auto 2.7 X10*3/uL (1.2-4.9); Lymphocytes Percent Auto 23.4 % (20-40); Mean Corpuscular HGB Conc 34.1 g/dl (31.0-36.0); Mean Corpuscular Hemoglobin 30.7 pg (27.0-33.0); Mean Platelet Volume 10.2 fL (9.4-12.4); Monocytes Absolute Auto 0.7 X10*3/uL (0.1-1.2); Monocytes Percent Auto 6.2 % (2-11); Neutrophils Absolute Auto 7.7 x10*3/uL (2.0-8.3); Neutrophils Percent Auto 66.1 % (45-73); Platelet Count 289 X10*3/uL (160-400); Red Blood Count 5.99 X10*6/uL (4.60-5.80); Red Cell Distribution Width 12.4 % (11.0-16.0); White Blood Count 11.6 X10*3/uL (4.8-10.8)
[2024-10-15 13:21] LABS: Alanine Aminotransferase 21 U/L (0-40); Albumin Level 3.9 g/dL (3.5-5.0); Alkaline Phosphatase 52 U/L (39-117); Anion Gap 10 (12-20); Aspartate Amino Transferase 24 U/L (5-37); Bilirubin Total 0.7 mg/dL (0.0-1.0); Blood Urea Nitrogen 15 mg/dL (9-16); Calcium 9.3 mg/dL (8.4-10.2); Carbon Dioxide 32 mmol/L (22-29); Chloride 100 mmol/L (96-108); Estimated Glomerular Filt Rate > 60; Glucose Random 192 mg/dL (60-115); Potassium 3.9 mmol/L (3.3-5.1); Sodium 138 mmol/L (135-145); Total Protein 6.3 g/dL (6.5-8.0)
[2024-10-15 13:23] LABS: Estimated Average Glucose 166 mg/dL; Hemoglobin A1c % 7.4 % (<6.0); Total Hemoglobin (HGBA1C) 4519.3674 umol/L
[2024-10-15 13:45] LABS: Creatinine Urine 157.27 mg/dL; Microalbum/Creatinine Ratio Ur 314.7 ug/mg cr (<30)
== END 2024-10-15 10:22 | disposition home or self-care (01) ==
LOC: HO.HMGCLDS 10:21
PROVIDERS: PCP Internal Medicine; Visit Provider Internal Medicine
DX: E11.69 Type 2 diabetes mellitus with other specified complication (principal); E66.9 Obesity, unspecified; R80.9 Proteinuria, unspecified; E66.01 Morbid (severe) obesity due to excess calories; E78.9 Disorder of lipoprotein metabolism, unspecified; I10 Essential (primary) hypertension
CPT/HCPCS: 36415; 80053; 82043; 82570; 83036; 85025

== ENCOUNTER 2024-10-23 13:09 | Outpatient (AMB) | payer MEDICARE, MEDICAID, SELFPAY ==
[2024-10-23 14:06] VITALS: BMI 41.1
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
[2024-10-23 14:26] VITALS: BP 138/84; PULSE 84; O2SAT 91
== END 2024-10-23 14:36 | disposition home or self-care (01) ==
PROVIDERS: PCP Internal Medicine; Visit Provider Internal Medicine
DX: E11.69 Type 2 diabetes mellitus with other specified complication (principal); Z68.41 Body mass index [BMI] 40.0-44.9, adult; E66.01 Morbid (severe) obesity due to excess calories; I10 Essential (primary) hypertension; R80.9 Proteinuria, unspecified; E78.9 Disorder of lipoprotein metabolism, unspecified; E55.9 Vitamin D deficiency, unspecified

== ENCOUNTER → 2024-10-23 13:09 | Outpatient (BNVA) | payer MEDICARE, MEDICAID, SELFPAY | PROVIDERS: PCP Internal Medicine; Visit Provider Internal Medicine | DX: E11.69 Type 2 diabetes mellitus with other specified complication (principal); E66.9 Obesity, unspecified; I10 Essential (primary) hypertension; R80.9 Proteinuria, unspecified; E78.9 Disorder of lipoprotein metabolism, unspecified; E55.9 Vitamin D deficiency, unspecified | CPT/HCPCS: 96127; 99212 ==

== ENCOUNTER 2024-11-13 11:05 | Outpatient (AMB) | payer MEDICARE, MEDICAID, SELFPAY ==
[2024-11-13 11:09] VITALS: BP 118/78; PULSE 100; TEMP 36.9; O2SAT 98; BMI 41.0
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
== END 2024-11-13 11:38 | disposition home or self-care (01) ==
PROVIDERS: PCP Internal Medicine; Visit Provider Internal Medicine
DX: N50.89 Other specified disorders of the male genital organs (principal); F42.2 Mixed obsessional thoughts and acts; F41.1 Generalized anxiety disorder

== ENCOUNTER → 2024-11-13 11:05 | Outpatient (BNVA) | payer MEDICARE, MEDICAID, SELFPAY | PROVIDERS: PCP Internal Medicine; Visit Provider Internal Medicine | DX: N50.89 Other specified disorders of the male genital organs (principal); F42.2 Mixed obsessional thoughts and acts; F41.1 Generalized anxiety disorder | CPT/HCPCS: 96127; 99212 ==

== ENCOUNTER 2025-02-02 09:11 | Outpatient (REF) | payer MEDICARE, MEDICAID, SELFPAY ==
[2025-02-02 10:06] LABS: MANUAL DIFF FLAG NO
[2025-02-02 10:23] LABS: Basophils Absolute Auto 0.1 X10*3/uL (0.0-0.2); Basophils Percent Auto 0.7 % (0-2); Eosinophils Absolute Auto 0.2 X10*3/uL (0.0-0.4); Eosinophils Percent Auto 1.9 % (0-4); Hematocrit 54.9 % (42.0-52.0); Hemoglobin 18.9 g/dl (14.0-18.0); Imm Gran Abs Auto 0.05 X10*3/uL (0.00-0.03); Imm Gran Pct Auto 0.5 % (0.0-0.4); Lymphocytes Absolute Auto 2.5 X10*3/uL (1.2-4.9); Lymphocytes Percent Auto 23.7 % (20-40); Mean Corpuscular HGB Conc 34.4 g/dl (31.0-36.0); Monocytes Absolute Auto 0.7 X10*3/uL (0.1-1.2); Neutrophils Percent Auto 66.2 % (45-73); Platelet Count 319 X10*3/uL (160-400); Red Cell Distribution Width 12.9 % (11.0-16.0); White Blood Count 10.5 X10*3/uL (4.8-10.8)
[2025-02-02 10:32] LABS: Estimated Average Glucose 166 mg/dL; Hemoglobin A1C 274.5395 umol/L; Hemoglobin A1c % 7.4 % (<6.0); Total Hemoglobin (HGBA1C) 4749.7033 umol/L
[2025-02-02 10:51] LABS: Alanine Aminotransferase 20 U/L (0-40); Albumin Level 4.1 g/dL (3.5-5.0); Alkaline Phosphatase 55 U/L (39-117); Anion Gap 13 (12-20); Aspartate Amino Transferase 19 U/L (5-37); Bilirubin Total 0.9 mg/dL (0.0-1.0); Blood Urea Nitrogen 23 mg/dL (9-16); Calcium 9.3 mg/dL (8.4-10.2); Carbon Dioxide 29 mmol/L (22-29); Chloride 101 mmol/L (96-108); Cholesterol 147 mg/dL (<200); Estimated Glomerular Filt Rate > 60; Glucose Fasting 174 mg/dL (60-99); HDL Cholesterol 37 mg/dL (>40); LDL Cholesterol Calculated 82 mg/dL (<100); Potassium 3.7 mmol/L (3.3-5.1); Sodium 139 mmol/L (135-145); Total Protein 6.5 g/dL (6.5-8.0); Triglycerides 144 mg/dL (<150)
== END 2025-02-02 09:12 | disposition home or self-care (01) ==
LOC: HO.HMGCLDS 09:11
PROVIDERS: PCP Internal Medicine; Visit Provider Internal Medicine
DX: E11.69 Type 2 diabetes mellitus with other specified complication (principal); E66.9 Obesity, unspecified; R80.9 Proteinuria, unspecified; E66.01 Morbid (severe) obesity due to excess calories; E78.9 Disorder of lipoprotein metabolism, unspecified; E55.9 Vitamin D deficiency, unspecified; I10 Essential (primary) hypertension
CPT/HCPCS: 36415; 80053; 80061; 83036; 85025

== ENCOUNTER 2025-02-03 09:50 | Outpatient (REF) | payer MEDICARE, MEDICAID, SELFPAY ==
[2025-02-03 14:11] LABS: Creatinine Urine 209.83 mg/dL; Microalbum/Creatinine Ratio Ur 219.7 ug/mg cr (<30)
== END 2025-02-03 09:51 | disposition home or self-care (01) ==
LOC: HO.HMGCLNP 09:50
PROVIDERS: PCP Internal Medicine; Visit Provider Internal Medicine
DX: E11.69 Type 2 diabetes mellitus with other specified complication (principal); E66.9 Obesity, unspecified; R80.9 Proteinuria, unspecified; E66.01 Morbid (severe) obesity due to excess calories; E78.9 Disorder of lipoprotein metabolism, unspecified; E55.9 Vitamin D deficiency, unspecified; I10 Essential (primary) hypertension
CPT/HCPCS: 82043; 82570

== ENCOUNTER 2025-02-10 11:57 | Outpatient (AMB) | payer MEDICARE, MEDICAID, SELFPAY ==
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
[2025-02-10 13:27] VITALS: BP 138/80; PULSE 88; RESP 20; O2SAT 96; BMI 40.2
== END 2025-02-10 13:46 | disposition home or self-care (01) ==
LOC: HO.HMCC 11:58
PROVIDERS: PCP Internal Medicine; Visit Provider Internal Medicine
DX: Z00.01 Encounter for general adult medical examination with abnormal findings (principal); E11.69 Type 2 diabetes mellitus with other specified complication; E66.01 Morbid (severe) obesity due to excess calories; Z68.41 Body mass index [BMI] 40.0-44.9, adult; E66.9 Obesity, unspecified; M16.12 Unilateral primary osteoarthritis, left hip; E78.9 Disorder of lipoprotein metabolism, unspecified; I10 Essential (primary) hypertension; F41.1 Generalized anxiety disorder

== ENCOUNTER → 2025-02-10 11:57 | Outpatient (BNVA) | payer MEDICARE, MEDICAID, SELFPAY | PROVIDERS: PCP Internal Medicine; Visit Provider Internal Medicine | DX: Z00.01 Encounter for general adult medical examination with abnormal findings (principal); E11.69 Type 2 diabetes mellitus with other specified complication; E66.01 Morbid (severe) obesity due to excess calories; Z68.41 Body mass index [BMI] 40.0-44.9, adult; M16.12 Unilateral primary osteoarthritis, left hip; E78.9 Disorder of lipoprotein metabolism, unspecified; I10 Essential (primary) hypertension; F41.1 Generalized anxiety disorder; Z71.3 Dietary counseling and surveillance | CPT/HCPCS: 96127; 99212; 99396 ==

== ENCOUNTER 2025-05-07 12:03 | Outpatient (REF) | payer MEDICARE, MEDICAID, SELFPAY ==
[2025-05-07 13:00] LABS: MANUAL DIFF FLAG NO
[2025-05-07 13:06] LABS: Hematocrit 53.2 % (42.0-52.0); Hemoglobin 18.7 g/dl (14.0-18.0); Imm Gran Abs Auto 0.04 X10*3/uL (0.00-0.03); Imm Gran Pct Auto 0.4 % (0.0-0.4); Lymphocytes Absolute Auto 2.4 X10*3/uL (1.2-4.9); Mean Corpuscular HGB Conc 35.2 g/dl (31.0-36.0); Mean Corpuscular Hemoglobin 30.9 pg (27.0-33.0); Mean Corpuscular Volume 87.9 fL (80.0-98.0); NRBC Abs Auto 0.000 X10*3/uL (0.0-0.012); NRBC Pct Auto 0.0 /100WBC (0.0-0.2); Platelet Count 301 X10*3/uL (160-400); Red Blood Count 6.05 X10*6/uL (4.60-5.80); White Blood Count 9.8 X10*3/uL (4.8-10.8)
[2025-05-07 13:28] LABS: Alanine Aminotransferase 20 U/L (0-40); Albumin Level 4.5 g/dL (3.5-5.0); Alkaline Phosphatase 55 U/L (39-117); Anion Gap 16 (12-20); Aspartate Amino Transferase 18 U/L (5-37); Blood Urea Nitrogen 21 mg/dL (9-16); Calcium 9.8 mg/dL (8.4-10.2); Carbon Dioxide 24 mmol/L (22-29); Chloride 103 mmol/L (96-108); Estimated Glomerular Filt Rate > 60; Hemoglobin A1C 252.8760 umol/L; Potassium 4.3 mmol/L (3.3-5.1); Sodium 139 mmol/L (135-145); Total Hemoglobin (HGBA1C) 4776.9603 umol/L; Total Protein 6.9 g/dL (6.5-8.0)
== END 2025-05-07 12:04 | disposition home or self-care (01) ==
LOC: HO.HMGCLDS 12:03
PROVIDERS: PCP Internal Medicine; Visit Provider Internal Medicine
DX: I10 Essential (primary) hypertension (principal); E11.69 Type 2 diabetes mellitus with other specified complication; E66.01 Morbid (severe) obesity due to excess calories; E78.9 Disorder of lipoprotein metabolism, unspecified
CPT/HCPCS: 36415; 80053; 83036; 85025

== ENCOUNTER 2025-05-18 12:40 | Outpatient (AMB) | payer MEDICARE, MEDICAID, SELFPAY ==
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
[2025-05-18 12:46] VITALS: BP 142/80; PULSE 87; O2SAT 96; BMI 39.1
== END 2025-05-18 13:11 | disposition home or self-care (01) ==
LOC: HO.HMCC 12:41
PROVIDERS: PCP Internal Medicine; Visit Provider Internal Medicine
DX: R19.7 Diarrhea, unspecified (principal); E11.69 Type 2 diabetes mellitus with other specified complication; E78.9 Disorder of lipoprotein metabolism, unspecified; I10 Essential (primary) hypertension; F41.1 Generalized anxiety disorder; E66.812 Obesity, class 2; Z68.39 Body mass index [BMI] 39.0-39.9, adult

== ENCOUNTER → 2025-05-18 12:40 | Outpatient (BNVA) | payer MEDICARE, MEDICAID, SELFPAY | PROVIDERS: PCP Internal Medicine; Visit Provider Internal Medicine | DX: R19.7 Diarrhea, unspecified (principal); E11.69 Type 2 diabetes mellitus with other specified complication; E78.9 Disorder of lipoprotein metabolism, unspecified; I10 Essential (primary) hypertension; F41.1 Generalized anxiety disorder; E66.812 Obesity, class 2; E66.01 Morbid (severe) obesity due to excess calories; Z68.39 Body mass index [BMI] 39.0-39.9, adult; Z71.3 Dietary counseling and surveillance | CPT/HCPCS: 99212 ==

== ENCOUNTER 2025-08-10 13:15 | Outpatient (REF) | payer MEDICARE, MEDICAID, SELFPAY ==
[2025-08-10 16:28] LABS: MANUAL DIFF FLAG NO
[2025-08-10 16:55] LABS: Hematocrit 49.9 % (42.0-52.0); Hemoglobin 16.6 g/dl (14.0-18.0); Imm Gran Abs Auto 0.02 X10*3/uL (0.00-0.03); Imm Gran Pct Auto 0.3 % (0.0-0.4); Lymphocytes Absolute Auto 1.7 X10*3/uL (1.2-4.9); Mean Corpuscular HGB Conc 33.3 g/dl (31.0-36.0); Mean Corpuscular Hemoglobin 30.5 pg (27.0-33.0); Mean Corpuscular Volume 91.6 fL (80.0-98.0); NRBC Abs Auto 0.000 X10*3/uL (0.0-0.012); NRBC Pct Auto 0.0 /100WBC (0.0-0.2); Platelet Count 271 X10*3/uL (160-400); Red Blood Count 5.45 X10*6/uL (4.60-5.80); White Blood Count 8.0 X10*3/uL (4.8-10.8)
[2025-08-10 17:02] LABS: Alanine Aminotransferase 19 U/L (0-40); Albumin Level 4.0 g/dL (3.5-5.0); Alkaline Phosphatase 55 U/L (39-117); Anion Gap 12 (12-20); Aspartate Amino Transferase 20 U/L (5-37); Blood Urea Nitrogen 10 mg/dL (9-16); Calcium 9.5 mg/dL (8.4-10.2); Carbon Dioxide 31 mmol/L (22-29); Chloride 101 mmol/L (96-108); Estimated Glomerular Filt Rate > 60; Potassium 3.5 mmol/L (3.3-5.1); Sodium 140 mmol/L (135-145); Total Protein 6.6 g/dL (6.5-8.0)
[2025-08-10 17:18] LABS: Ferritin 148 ng/mL (20-250)
== END 2025-08-10 13:16 | disposition home or self-care (01) ==
LOC: HO.HMGCLDS 13:15
PROVIDERS: PCP Internal Medicine; Visit Provider Internal Medicine
DX: I10 Essential (primary) hypertension (principal); E78.9 Disorder of lipoprotein metabolism, unspecified; F41.1 Generalized anxiety disorder; E11.65 Type 2 diabetes mellitus with hyperglycemia
CPT/HCPCS: 36415; 80053; 82728; 83036; 85025

== ENCOUNTER 2025-08-17 13:33 | Outpatient (AMB) | payer MEDICARE, MEDICAID, SELFPAY ==
[2025-08-17 13:39] VITALS: BP 140/82; PULSE 87; O2SAT 94; BMI 37.1
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
== END 2025-08-17 14:00 | disposition home or self-care (01) ==
LOC: HO.HMCC 13:34
PROVIDERS: PCP Internal Medicine; Visit Provider Internal Medicine
DX: Z09 Encounter for follow-up examination after completed treatment for conditions other than malignant neoplasm (principal); M86.8X7 Other osteomyelitis, ankle and foot; I82.401 Acute embolism and thrombosis of unspecified deep veins of right lower extremity; I10 Essential (primary) hypertension; E11.65 Type 2 diabetes mellitus with hyperglycemia; Z79.4 Long term (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 of insulin

== ENCOUNTER → 2025-08-17 13:33 | Outpatient (BNVA) | payer MEDICARE, MEDICAID, SELFPAY | PROVIDERS: PCP Internal Medicine; Visit Provider Internal Medicine | DX: Z09 Encounter for follow-up examination after completed treatment for conditions other than malignant neoplasm (principal); M86.8X7 Other osteomyelitis, ankle and foot; I82.401 Acute embolism and thrombosis of unspecified deep veins of right lower extremity; I10 Essential (primary) hypertension; E11.65 Type 2 diabetes mellitus with hyperglycemia; Z79.4 Long term (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 of insulin; Z79.01 Long term (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 of anticoagulants | CPT/HCPCS: 99212 ==